=== PATIENT | male | born 1965 | race Hispanic/Latino ===

== ENCOUNTER 2021-05-09 20:24 | Emergency (ER) | payer BC ==
[~2021-05-09] VITALS: Ht 165.1 cm; Wt 108.7 kg
[2021-05-09 20:25] VITALS: BP 134/75
[2021-05-09 22:10] LABS: HEMATOCRIT 45.2 % (42.0-52.0); LYMPH # 0.6 10^3/uL (1.5-5.0); LYMPH % 10.5 % (24.0-44.0); MEAN CORPUSCULAR HEMOGLOBIN 31.4 pg (27.0-33.0); MEAN CORPUSCULAR HGB CONC 35.4 g/dl (32.0-36.5); MEAN CORPUSCULAR VOLUME 88.8 fl (80.0-96.0); MONO # 0.2 10^3/uL (0.0-0.8); NEUTROPHILS # 4.9 10^3/uL (1.5-8.5); NEUTROPHILS % 86.2 % (36.0-66.0); PLATELET COUNT, AUTOMATED 133 10^3/uL (150-450); RED BLOOD COUNT 5.09 10^6/uL (4.30-6.10); WHITE BLOOD COUNT 5.7 10^3/uL (4.0-10.0)
[2021-05-09 22:15] LABS: INR 0.95; PROTHROMBIN TIME 13.1 SECONDS (12.7-14.5)
[2021-05-09 22:16] LABS: PARTIAL THROMBOPLASTIN TIME 40.1 SECONDS (25.9-37.0)
[2021-05-09 22:18] LABS: D-DIMER QUANT 1156.2 ng/ml (<500)
[2021-05-09 22:29] LABS: ALBUMIN 3.2 GM/DL (3.2-5.2); ALT/SGPT 36 U/L (12-78); BILIRUBIN,TOTAL 0.6 MG/DL (0.2-1.0); BLOOD UREA NITROGEN 10 MG/DL (7-18); CALCIUM LEVEL 7.9 MG/DL (8.5-10.1); CARBON DIOXIDE LEVEL 24 MEQ/L (21-32); CHLORIDE LEVEL 102 MEQ/L (98-107); CK-MB VALUE MASS < 1.0 NG/ML (<3.6); CPK CREATINE PHOSPHOKINASE 345 U/L (39-308); CREATININE FOR GFR 0.86 MG/DL (0.70-1.30); FERRITIN 1726 NG/ML (26-388); GLOMERULAR FILTRATION RATE > 60.0 (>56); GLUCOSE, FASTING 129 MG/DL (70-100); LDH LACTATE DEHYDROGENASE 452 U/L (87-241); MB/CK RELATIVE INDEX 0.29 (< OR =4); POTASSIUM SERUM 3.9 MEQ/L (3.5-5.1); SODIUM LEVEL 135 MEQ/L (136-145); TOTAL PROTEIN 6.8 GM/DL (6.4-8.2); TROPONIN I < 0.02 NG/ML (< 0.10)
--- NOTE | 2021-05-09 22:55 | REPVR ---
PROCEDURE INFORMATION: Exam: XR Chest Exam date and time: 05/09/2021 10:00 PM Age: 56 years old Clinical indication: Other: Moody virus workup; Additional info: Coronavirus workup TECHNIQUE: Imaging protocol: XR of the chest. Views: 1 view. COMPARISON: No relevant prior studies available. FINDINGS: Limitations: Limited by patient's body habitus. Lungs: Congested pulmonary vasculature. Patchy mild lung opacities. Pleural spaces: Unremarkable. No pleural effusion. No pneumothorax. Heart/Mediastinum: Unremarkable. No cardiomegaly. Bones/joints: Unremarkable. IMPRESSION: 1. Congested pulmonary vasculature. 2. Patchy mild lung opacities. Electronically signed by: Ho Jiang On 05/09/2021 22:54:51 PM
[2021-05-10] MEDS ORDERED: ONDANSETRON 4MG/2ML VIAL IV ONE (00:10)
[2021-05-10] MEDS ORDERED: MORPHINE 4 MG/ML 1ML VIAL/SYRINGE (J2270) IV PRN (00:10)
[2021-05-10] MEDS ORDERED: ISOVUE-370 76% 100ML VIAL As Ordered ONE (00:24)
--- NOTE | 2021-05-10 01:20 | REPVR ---
PROCEDURE INFORMATION: Exam: CTA Chest With Contrast Exam date and time: 05/10/2021 12:48 AM Age: 56 years old Clinical indication: Pain and abnormal findings; Abnormal diagnostic tests; Elevated d-dimer; Shortness of breath; Angina pectoris; Additional info: Chest pain, SOB, ddimer, covid TECHNIQUE: Imaging protocol: Computed tomographic angiography of the chest with contrast. 3D rendering (Not supervised by radiologist): MIP and/or 3D reconstructed images were created by the technologist. Radiation optimization: All CT scans at this facility use at least one of these dose optimization techniques: automated exposure control; mA and/or kV adjustment per patient size (includes targeted exams where dose is matched to clinical indication); or iterative reconstruction. Contrast material: ISOVUE 370; Contrast volume: 100 ml; Contrast route: INTRAVENOUS (IV); COMPARISON: CR PORTABLE CHEST X-RAY 2021-05-09 21:42 FINDINGS: Limitations: Limited by patient's body habitus. Motion artifact does moderately limit the sensitivity of this examination. Pulmonary arteries: No filling defects in the pulmonary arteries to suggest pulmonary emboli. Aorta: Unremarkable. No aortic aneurysm. No aortic dissection. Lungs: Patchy diffuse ground-glass and consolidative lung opacities. Hypoexpanded lungs with associated atelectasis. Pleural spaces: Unremarkable. No pneumothorax. No pleural effusion. Heart: Unremarkable. No cardiomegaly. No pericardial effusion. Lymph nodes: Unremarkable. No enlarged lymph nodes. Bones/joints: Unremarkable. No acute fracture. Soft tissues: Unremarkable. IMPRESSION: 1. Patchy diffuse ground-glass and consolidative lung opacities. 2. No filling defects in the pulmonary arteries to suggest pulmonary emboli. Electronically signed by: Ho Jiang On 05/10/2021 01:20:09 AM
--- NOTE | 2021-05-10 09:35 | ECGEPIP ---
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
== END 2021-05-10 03:26 | disposition home or self-care (01) ==
LOC: M ED 20:24
DX: J12.82 Pneumonia due to coronavirus disease 2019 (principal); Z88.0 Allergy status to penicillin
CPT/HCPCS: 36600; 71045; 71275; 80053; 82550; 82553; 82728; 82803; 83605; 83615; 84145; 84484; 85025; 85379; 85384; 85610; 85730; 86140; 87040; 93005; 93041; 96374; 96375; 99284; J2270; J2405; Q9967

== ENCOUNTER 2021-05-10 02:23 | Outpatient (CLI) | payer BC ==
[2021-05-10] VITALS (8 sets, daily range): BP systolic 110–124; BP diastolic 60–72
[~2021-05-10] VITALS: Ht 165.1 cm; Wt 105.8 kg
[2021-05-10] MEDS ORDERED: methylPREDNISolone 125MG 2ML VIAL IV PRN (02:30)
[2021-05-10] MEDS ORDERED: diphenhydrAMINE 50MG/ML VIAL (J1200) IV PRN (02:30)
[2021-05-10] MEDS ORDERED: NS 1,000 ML IV SCH (02:30)
[2021-05-10] MEDS ORDERED: ALBUTEROL 90 MCG/ACT 8GM HFA INHALER INH PRN (02:30)
[2021-05-10] MEDS ORDERED: ALBUTEROL SULFATE 2.5 MG/0.5 ML INH NEB SOLN INH PRN (02:30)
[2021-05-10] MEDS ORDERED: EPINEPHrine INJ 1 MG/ML 1ML AMP IM PRN (02:30)
--- NOTE | 2021-05-10 02:36 | IPNPDOC ---
Text Note Date of Service The patient was seen on 05/10/21. NOTE Outpatient transfusion for COVID+ patient encounter 56M who denies any past medical history who is obese is seen for evaluation for monoclonal AB infusion therapy. Patient is COVID19+ will be receiving Monocolonal antibodies infusion therapy per hospital infusion policy. Patient has been feeling tired at home with a headache some cough and muscle aches for the past few days which prompted him to come to the ER for visit. [place]. Patient does not meet criteria to be admitted to the hospital. Patient is breathing at 98% on room air and does not dipped below 92% on ambulation. Patient will receive the infusion and then be discharged to home with OP followup. On exam patient was resting comfortably lungs were clear to auscultation bilaterally with no crackles or wheezing. Regular heart rate. Patient was calm awake and answering all questions appropriately. Is able to speak in full sentences without appearing short of breath. Abdomen was soft and nontender with positive bowel sounds. Consent was obtained with patient and signed in the chart. 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 Patient advised to return to hospital should his symptoms worsen. ELSA RUFFIN MD May 10, 2021 02:36
[2021-05-10] MEDS ORDERED: diphenhydrAMINE 25MG CAP PO ONE (03:44)
[2021-05-10] MEDS ORDERED: ACETAMINOPHEN TAB 650MG DOSE (2X325MG) PO ONE (03:44)
[2021-05-10] MEDS ORDERED: CASIRIVIMAB/IMDEVIMAB 1,200 MG in NS 250 ML IV ONE (04:15)
== END 2021-05-10 06:32 | disposition home or self-care (01) ==
LOC: M OPCLIICU 02:23 → M ICU 03:33 → M OPCLIICU 06:32
PROVIDERS: ATTEND Emergency Medicine
DX: U07.1 COVID-19 (principal); Z88.0 Allergy status to penicillin

== ENCOUNTER 2021-05-10 08:55 | Inpatient (IN) | payer BC ==
[~2021-05-10] VITALS: Ht 165.1 cm; Wt 102.9 kg
[2021-05-10] MEDS: guaiFENesin ER 600 MG TAB PO SCH ×2 (09:00→19:31)
[2021-05-10] MEDS ORDERED: NS 1,000 ML IV SCH (09:20)
[2021-05-10] MEDS ORDERED: ACETAMINOPHEN 500 MG TAB PO ONE (09:20)
[2021-05-10 09:42] LABS: HEMATOCRIT 47.6 % (42.0-52.0); HEMOGLOBIN 16.3 g/dl (13.5-17.5); MEAN CORPUSCULAR HEMOGLOBIN 30.6 pg (27.0-33.0); MEAN CORPUSCULAR HGB CONC 34.2 g/dl (32.0-36.5); MEAN CORPUSCULAR VOLUME 89.3 fl (80.0-96.0); PLATELET COUNT, AUTOMATED 149 10^3/uL (150-450); RED BLOOD COUNT 5.33 10^6/uL (4.30-6.10); WHITE BLOOD COUNT 6.2 10^3/uL (4.0-10.0)
[2021-05-10 09:51] LABS: INR 0.95; PROTHROMBIN TIME 13.1 SECONDS (12.7-14.5)
[2021-05-10 09:52] LABS: PARTIAL THROMBOPLASTIN TIME 36.5 SECONDS (25.9-37.0)
[2021-05-10 09:54] LABS: D-DIMER QUANT 2107.14 ng/ml (<500)
--- NOTE | 2021-05-10 09:58 | REP ---
INDICATION: Coronavirus workup. COMPARISON: Portable chest, 05/09/2021. TECHNIQUE: AP semi upright portable chest imaging was performed. FINDINGS: There is been interval development of more confluent airspace consolidation in both lungs in a distribution consistent with COVID related pneumonia. The heart borders and mediastinum are unremarkable. The upper abdominal bowel gas pattern is normal. There are no bony abnormalities of the chest. IMPRESSION: Findings consistent with worsening airspace disease consistent with COVID related pneumonia. <Electronically signed by Carlos Eduardo Guzman > 05/10/21 0951
[2021-05-10 10:02] LABS: ATYPICAL LYMPH 3 % (0-5); LYMPHOCYTES 3 % (16-44); NEUTROPHILS 77 % (28-66)
[2021-05-10 10:05] LABS: PLATELET ESTIMATE NORMAL (NORMAL)
[2021-05-10] MEDS ORDERED: MORPHINE 4 MG/ML 1ML VIAL/SYRINGE (J2270) IV PRN (10:05)
[2021-05-10] MEDS ORDERED: ONDANSETRON 4MG/2ML VIAL IV ONE (10:05)
[2021-05-10 10:06] LABS: ANISOCYTOSIS 1+; PLATELET CLUMPS SMALL AMT
[2021-05-10 10:21] LABS: ALT/SGPT 35 U/L (12-78); BILIRUBIN,TOTAL 0.7 MG/DL (0.2-1.0); BLOOD UREA NITROGEN 13 MG/DL (7-18); CALCIUM LEVEL 7.9 MG/DL (8.5-10.1); CARBON DIOXIDE LEVEL 27 MEQ/L (21-32); CHLORIDE LEVEL 103 MEQ/L (98-107); CK-MB VALUE MASS < 1.0 NG/ML (<3.6); CPK CREATINE PHOSPHOKINASE 339 U/L (39-308); CREATININE FOR GFR 1.01 MG/DL (0.70-1.30); FERRITIN 2323 NG/ML (26-388); GLOMERULAR FILTRATION RATE > 60.0 (>56); GLUCOSE, FASTING 119 MG/DL (70-100); LDH LACTATE DEHYDROGENASE 545 U/L (87-241); MAGNESIUM LEVEL 2.3 MG/DL (1.8-2.4); MB/CK RELATIVE INDEX 0.29 (< OR =4); POTASSIUM SERUM 3.9 MEQ/L (3.5-5.1); SODIUM LEVEL 138 MEQ/L (136-145); TOTAL PROTEIN 6.8 GM/DL (6.4-8.2); TROPONIN I < 0.02 NG/ML (< 0.10)
[2021-05-10] MEDS ORDERED: HOME MED LIST COMPLETE! XX SCH (10:35)
[2021-05-10] MEDS ORDERED: ACETAMINOPHEN TAB 650MG DOSE (2X325MG) PO PRN (11:25)
[2021-05-10] MEDS ORDERED: ALBUTEROL 90 MCG/ACT 8GM HFA INHALER INH PRN (12:15)
--- NOTE | 2021-05-10 12:22 | HPEPDOC ---
General Date of Admission May 10, 2021 Date of Service: May 10, 2021 Chief Complaint The patient is a 56-year-old male admitted with a reason for visit of Fever/Cough. Source: Patient, Family History of Present Illness Mr. Herring is a 56 year old COVID positive male from [place] who presented with confusion and dyspnea. He was feeling well in [place] and did not get the COVID vaccine by choice. Daughter says that he is more into homeopathic treatments such as acupuncture. His was not feeling well and was having diarrhea. She had tested negative for COVID, so he had planned to visit his . He arrived in [place] on May 03, and that was when he started to have chills. He thought it was just the chill from the airport and did not think much of it. He and his stayed at home since they were not feeling well. He had came to the ED on evening of May 09 where he was doing well at room air and did not meet admission. Instead he was given Casirivimab and Imdevimab early hours of May 10. He went home afterwards, but noted that he was not acting himself. He was coughing and being incoherent. He returned to the ED and was found to be hypoxic in the 70s. and tachycardic. He was put on Vapotherm. Patient reported that he had chills and intermittent abdominal pain and nausea. His appetite has been poor. Patient will be admitted for acute hypoxic respiratory failure and COVID pneumonia. Home Medications No Active Prescriptions or Reported Meds Allergies Coded Allergies: Penicillins (Unverified Allergy, Intermediate, SWOLLEN AND RED, 05/10/21) Past Medical History Medical History Denies any known medical history. Does not take medications at home Surgical History Denies any surgeries in the past Family History Denies any known family history Social History * Smoker: Denies Alcohol: occationally Drugs: denies A-FIB/CHADSVASC A-FIB History Current/History of A-Fib/PAF?: No Review of Systems Constitutional: Reports: Chills, Fever Eyes: Denies: Vision change ENT: Denies: Sore Throat Skin: Denies: Rash Pulmonary: Reports: Dyspnea, Cough (non-productive, but can feel congestion) Cardiovascular: Denies: Chest Pain Gastrointestinal: Reports: Nausea (resolved), Abdominal Pain (Resolved), Diarrhea; Denies: Vomiting Genitourinary: Denies: Dysuria Hematologic: Denies: Bruising Neurological: Denies: Numbness Psych: Denies: Anxiety, Depression Physical Examination General Exam: Positive: Alert, Cooperative Eye Exam: Positive: EOMI; Negative: Sclera icteric ENT Exam: Positive: Atraumatic Chest Exam: Positive: Diminished Heart Exam: Positive: Tachycardic, Regular Rhythm Abdomen Exam: Positive: Normal bowel sounds, Soft; Negative: Tenderness Extremity Exam: Negative: Edema Neuro Exam: Positive: Normal Speech Psych Exam: Positive: Mental status NL, Mood NL Vital Signs Vital Signs Date Time Temp Pulse Resp B/P (MAP) Pulse Ox O2 Delivery O2 Flow Rate FiO2 05/10/21 10:19 25 90 High Flow Cannula 18.0 60 05/10/21 09:45 143/71 (95) 05/10/21 09:40 118 05/10/21 08:56 102.9 Laboratory Data Labs 24H Laboratory Tests 2 05/10/21 09:25: Neutrophils (%) (Auto) , Nucleated Red Blood Cells % (auto) 0.0, Neutrophils 77H, Band Neutrophils 17H, Lymphocytes (Manual) 3L, Atypical Lymphocytes 3, Anisocytosis 1+, Platelet Estimate NORMAL, Clumped Platelets SMALL AMT, Prothrombin Time 13.1, Prothromb Time International Ratio 0.95, Activated Partial Thromboplast Time 36.5, Fibrinogen 643H, D-Dimer, Quantitative 2107.14H, Anion Gap 8, Glomerular Filtration Rate > 60.0, Calcium Level 7.9L, Magnesium Level 2.3, Ferritin 2323H, Total Bilirubin 0.7, Aspartate Amino Transf (AST/SG OT) 44H, Alanine Aminotransferase (ALT/SGPT) 35, Alkaline Phosphatase 36L, Lactate Dehydrogenase 545H, Total Creatine Kinase 339H, Creatine Kinase MB < 1.0, Creatine Kinase MB Relative Index 0.29, Troponin I < 0.02, C-Reactive Protein, Quantitative 13.60H, Total Protein 6.8, Albumin 3.0L, Albumin/Globulin Ratio 0.8, Procalcitonin 0.26 05/10/21 09:26: POC pH (Misc Panel) 7.419, POC Base Excess (Misc Panel) 1.0, POC Saturated Percent O2 (Misc) 94L, POC pO2 (Misc Panel) 69.0L, POC pCO2 (Misc Panel) 40.1, POC HCO3 (Misc Panel) 25.9, POC Glucose (Misc Panel) 127H, POC Sodium (Misc Panel) 137, POC Potassium (Misc Panel) 3.7, POC Chloride (Misc Panel) 98, POC Total CO2 (Misc Panel) 23.0, POC Blood Urea Nitrogen (Misc Panel 12, POC Ionized Calcium (Misc Panel) 4.0L, POC Creatinine (Misc Panel) 0.9, POC Hematocrit (Misc Panel) 48.0, Lactic Acid Level 2.5*H 05/10/21 09:30: POC Lactate (Misc Panel) 2.41*H CBC/BMP Laboratory Tests 05/10/21 09:25 Microbiology Microbiology 05/10/21 Blood Culture, Received Pending 05/10/21 Blood Culture, Received Pending Assessment/Plan Mr. Herring is a 56 year old COVID positive male from [place] who presented with confusion and dyspnea secondary to acute hypoxic respiratory failure from COVID pneumonia. Patient did not receive COVID vaccine by choice. He is still within the window for remdesivir, so he will be put on the remdesivir protocol. He will be on dexamethasone, aspirin, and subq Lovenox. Plan / VTE VTE Prophylaxis Ordered?: Yes Plan Plan 1. Acute hypoxic respiratory failure -Patient saturated in the 70s at room air -Required Vapotherm 2. COVID pneumonia -Start remdesivir protocol -Start dexamethasone -D-dimer is less than 5000, on aspirin and Lovenox subQ -Continue oxygen as needed, goal SpO2 >90 -Albuterol HFA for dyspnea. Mucinex for chest congestion -Procalcitonin 0.26. Ceftriaxone and azithromycin day 1 3. DVT ppx -On Lovenox Disposition: pending clinical improvement JOEL DANIELLE DO May 10, 2021 12:22
[2021-05-10 12:40] LABS: NT-PRO BNP 108 PG/ML (<125)
--- NOTE | 2021-05-10 14:30 | ECGEPIP ---
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
[2021-05-10] MEDS: dexameTHASONE 4 MG/ML 1ML VIAL (J1100 PER 1MG) IV SCH (14:58)
[2021-05-10] MEDS ORDERED: AZITHROMYCIN INJ 500 MG, VIAL MATE ADAPTER 1 EACH in NS 250 ML IV SCH (15:00)
[2021-05-10] MEDS: LevoFLOXacin IV 750 MG in IV 1 EA IV SCH (15:46)
[2021-05-10] MEDS ORDERED: cefTRIAXone SOD 1 GM in D5W MINI-BAG PLUS 50 ML IV SCH (16:00)
[2021-05-10] MEDS: ASPIRIN 81MG ENTERIC TABLET PO SCH (16:17)
[2021-05-10 16:30] VITALS: BP 141/70
[2021-05-10] MEDS: REMDESIVIR 200 MG in NS 250 ML IV ONE ×2 (16:43→16:49)
[2021-05-10 17:00] VITALS: O2SAT 94
[2021-05-10 18:55] VITALS: BP 133/63
[2021-05-10] MEDS ORDERED: SODIUM CHLORIDE 0.9% INJ 10 ML SYR IV ONE (19:00)
[2021-05-10] MEDS: ENOXAPARIN 40MG/0.4ML SYRINGE (J1650 PER 10MG) SC SCH (19:31)
[2021-05-10] MEDS: PANTOPRAZOLE 40MG TAB (PROTONIX) PO SCH (19:31)
[2021-05-10 19:38] VITALS: BP 150/79
[2021-05-10 20:00] VITALS: O2SAT 91
[2021-05-10 20:20] LABS: APPEARANCE, URINE MANUAL HAZY (CLEAR); BILIRUBIN, URINE MANUAL NEGATIVE (NEGATIVE); COLOR, URINE MANUAL YELLOW (YELLOW); GLUCOSE, URINE (UA) MANUAL NEGATIVE (NEGATIVE); KETONE, URINE MANUAL 2+ mg/dL (NEGATIVE); NITRITE, URINE MANUAL NEGATIVE (NEGATIVE); PROTEIN, URINE MANUAL 1+ mg/dL (NEGATIVE); UROBILINOGEN, URINE MANUAL NORMAL (NORMAL)
[2021-05-10 20:21] LABS: BLOOD URINE MANUAL POSITIVE (NEGATIVE); LEUKOCYTE ESTERASE, URINE MAN NEGATIVE (NEGATIVE); MUCUS, URINE LARGE AMOUNT (NEGATIVE)
[2021-05-10 20:27] LABS: AMORPHOUS SEDIMENT, URINE LARGE AMOUNT (NEGATIVE); BACTERIA, URINE NONE SEEN; RBC, URINE 0-1 /hpf (0-3); SQUAMOUS EPITHELIAL CELL URINE SMALL AMOUNT /hpf (SMALL AMT); TRANSITIONAL EPI CELLS, URINE SMALL AMOUNT /hpf; WHITE BLOOD CELL CAST, URINE 0-1 /lpf
[2021-05-10 23:18] VITALS: BP 169/77
[2021-05-10] MEDS: RAMELTEON 8 MG TAB (ROZEREM) PO PRN (23:58)
[2021-05-11] VITALS (7 sets, daily range): BP systolic 122–160; BP diastolic 62–79; O2SAT 91–94
[2021-05-11 05:01] LABS: HEMATOCRIT 50.2 % (42.0-52.0); HEMOGLOBIN 17.3 g/dl (13.5-17.5); MEAN CORPUSCULAR HEMOGLOBIN 31.3 pg (27.0-33.0); MEAN CORPUSCULAR HGB CONC 34.5 g/dl (32.0-36.5); MEAN CORPUSCULAR VOLUME 90.9 fl (80.0-96.0); PLATELET COUNT, AUTOMATED 192 10^3/uL (150-450); RED BLOOD COUNT 5.52 10^6/uL (4.30-6.10); WHITE BLOOD COUNT 17.6 10^3/uL (4.0-10.0)
[2021-05-11 05:16] LABS: ALBUMIN 2.7 GM/DL (3.2-5.2); ALT/SGPT 33 U/L (12-78); BILIRUBIN,DIRECT 0.3 MG/DL (0.0-0.2); BILIRUBIN,TOTAL 0.6 MG/DL (0.2-1.0); BLOOD UREA NITROGEN 15 MG/DL (7-18); CALCIUM LEVEL 8.1 MG/DL (8.5-10.1); CARBON DIOXIDE LEVEL 28 MEQ/L (21-32); CHLORIDE LEVEL 106 MEQ/L (98-107); CREATININE FOR GFR 0.87 MG/DL (0.70-1.30); GLOMERULAR FILTRATION RATE > 60.0 (>56); GLUCOSE, FASTING 140 MG/DL (70-100); MAGNESIUM LEVEL 2.7 MG/DL (1.8-2.4); POTASSIUM SERUM 4.3 MEQ/L (3.5-5.1); SODIUM LEVEL 139 MEQ/L (136-145); TOTAL PROTEIN 7.4 GM/DL (6.4-8.2)
[2021-05-11 05:27] LABS: LYMPHOCYTES 2 % (16-44); MONOCYTES 3 % (0-5); NEUTROPHILS 93 % (28-66)
[2021-05-11 05:29] LABS: PLATELET ESTIMATE NORMAL (NORMAL)
[2021-05-11] MEDS: dexameTHASONE 4 MG/ML 1ML VIAL (J1100 PER 1MG) IV SCH (09:19)
[2021-05-11] MEDS: ASPIRIN 81MG ENTERIC TABLET PO SCH (09:20)
[2021-05-11] MEDS: ENOXAPARIN 40MG/0.4ML SYRINGE (J1650 PER 10MG) SC SCH ×2 (09:20→20:08)
[2021-05-11] MEDS: guaiFENesin ER 600 MG TAB PO SCH ×2 (09:20→20:08)
--- NOTE | 2021-05-11 12:48 | IPNPDOC ---
Subjective Date Seen The patient was seen on 05/11/21. Subjective Chief Complaint/HPI Mr. Herring is a 56 year old COVID positive male from [place] who presented with confusion and dyspnea. Overnight, he tolerated the CPAP well. This morning, he was seen with the [employer] security messenger. Patient was taken off CPAP and put on high flow nasal canula. He denies any chest pain, dyspnea, or abdominal pain. Denies any nausea either. After speaking with the security messenger, he wanted to sit up in the chair. He sat in the chair with the Vapotherm, saturating between 88 to 92%. Objective Physical Examination General Exam: Positive: Alert, Cooperative Eye Exam: Positive: EOMI; Negative: Sclera icteric ENT Exam: Positive: Atraumatic Chest Exam: Positive: Diminished Heart Exam: Positive: Tachycardic, Regular Rhythm Abdomen Exam: Positive: Normal bowel sounds, Soft; Negative: Tenderness Extremity Exam: Negative: Edema Neuro Exam: Positive: Normal Speech Psych Exam: Positive: Mental status NL, Mood NL Assessment /Plan Assessment Mr. Herring is a 56 year old COVID positive male from [place] who presented with confusion and dyspnea secondary to acute hypoxic respiratory failure from COVID pneumonia. Patient did not receive COVID vaccine by choice. He is still within the window for remdesivir, so he will be put on the remdesivir protocol. He will be on dexamethasone, aspirin, and subq Lovenox. Plan/VTE VTE Prophylaxis Ordered?: Yes Plan 1. Acute hypoxic respiratory failure -Patient saturated in the 70s at room air -Patient requires CPAP, but is able to tolerate Vapotherm for a short period. 2. COVID pneumonia -Continue remdesivir protocol -Continue dexamethasone -D-dimer is less than 5000, on aspirin and Lovenox subQ -Continue oxygen as needed -Albuterol HFA for dyspnea. Mucinex for chest congestion -Procalcitonin 0.26. Ceftriaxone and azithromycin day 2 3. DVT ppx -On Lovenox Disposition: Pending improvement in oxygen requirements VS, I&O, 24H, [facility] Vital Signs/I&O Vital Signs Date Time Temp Pulse Resp B/P (MAP) Pulse Ox O2 Delivery O2 Flow Rate FiO2 05/11/21 12:00 40.0 100 05/11/21 11:30 100 32 91 HVNI-Vapotherm 05/11/21 11:26 97.4 122/62 (82) I&O- Last 24 Hours up to 6 AM 05/11/21 06:00 Intake Total 1350 ml Output Total 570 ml Balance 780 ml Laboratory Data 24H LABS Laboratory Tests 2 05/10/21 14:05: Lactic Acid Followup at 4 Hours 2.7*H 05/10/21 19:57: Bedside Urine Color (LAB) YELLOW, Bedside Urine Appearance (LAB) HAZYH, Bedside Urine pH (LAB) 5.0, Bedside Urine Specific [place] (LAB 1.020, Bedside Urine Protein (LAB) 1+H, Bedside Urine Glucose (UA) NEGATIVE, Bedside Urine Ketones (LAB) 2+H, Bedside Urine Blood POSITIVEH, Bedside Urine Nitrite (LAB) NEGATIVE, Bedside Urine Bilirubin (LAB) NEGATIVE, Bedside Urine Urobilinogen (LAB) NORMAL, Bedside Urine Leukocyte Esterase (L NEGATIVE, Urine Sediment Examination PERFORMED, Urine RBC 0-1, Urine WBC 1-3, Urine Squamous Epithelial Cells SMALL AMOUNT, Urine Transitional Epithelial Cells SMALL AMOUNTH, Urine Amorphous Sediment LARGE AMOUNTH, Urine Bacteria NONE SEEN, Urine Hyaline Casts 3-5H, Urine Granular Casts 7-10H, Urine White Blood Cell Casts 0-1, Urine Mucus LARGE AMOUNTH 05/11/21 04:36: Neutrophils (%) (Auto) , Nucleated Red Blood Cells % (auto) 0.0, Neutrophils 93H, Band Neutrophils 2, Lymphocytes (Manual) 2L, Monocytes (Manual) 3, Platelet Estimate NORMAL, Anion Gap 5L, Glomerular Filtration Rate > 60.0, Calcium Level 8.1L, Magnesium Level 2.7H, Total Bilirubin 0.6, Direct Bilirubin 0.3H, Aspartate Amino Transf (AST/SGOT) 66H, Alanine Aminotransferase (ALT/SGPT) 33, Alkaline Phosphatase 35L, Total Protein 7.4, Albumin 2.7L, Albumin/Globulin Ratio 0.6 CBC/BMP Laboratory Tests 05/11/21 04:36 Microbiology Microbiology 05/10/21 Blood Culture - Preliminary, Resulted No growth after 24 hours . All specim... 05/10/21 Blood Culture - Preliminary, Resulted No growth after 24 hours . All specim... JOEL DANIELLE DO May 11, 2021 12:48
[2021-05-11] MEDS: LevoFLOXacin IV 750 MG in IV 1 EA IV SCH (14:13)
[2021-05-11] MEDS ORDERED: VANCOMYCIN HCL 1,000 MG, VIAL MATE ADAPTER 1 EACH in NS 250 ML IV ONE ×2 (15:00→16:00)
[2021-05-11] MEDS ORDERED: VANCOMYCIN HCL 2,000 MG in D5W 500 ML IV ONE (16:00)
[2021-05-11] MEDS: REMDESIVIR 100 MG in NS 250 ML IV SCH (16:39)
[2021-05-11] MEDS: SODIUM CHLORIDE 0.9% INJ 10 ML SYR IV SCH (16:40)
[2021-05-11] MEDS: ONDANSETRON 4MG/2ML VIAL IV PRN (17:04)
[2021-05-11] MEDS ORDERED: ALPRAZolam 0.5 MG TAB PO ONE ×2 (17:15→17:20)
[2021-05-11] MEDS: PANTOPRAZOLE 40MG TAB (PROTONIX) PO SCH (20:08)
[2021-05-11] MEDS: RAMELTEON 8 MG TAB (ROZEREM) PO PRN (20:08)
[2021-05-11] MEDS: VANCOMYCIN HCL 1,000 MG, VIAL MATE ADAPTER 1 EACH in NS 250 ML IV SCH (23:34)
[2021-05-12] VITALS (20 sets, daily range): BP systolic 104–162; BP diastolic 53–97
[2021-05-12 04:49] LABS: BASO % 0.1 % (0.0-1.0); HEMATOCRIT 45.4 % (42.0-52.0); LYMPH # 0.7 10^3/uL (1.5-5.0); MEAN CORPUSCULAR HEMOGLOBIN 30.8 pg (27.0-33.0); MEAN CORPUSCULAR HGB CONC 33.7 g/dl (32.0-36.5); MEAN CORPUSCULAR VOLUME 91.3 fl (80.0-96.0); MONO # 0.4 10^3/uL (0.0-0.8); MONO % 2.7 % (2.0-8.0); NEUTROPHILS # 12.4 10^3/uL (1.5-8.5); PLATELET COUNT, AUTOMATED 226 10^3/uL (150-450); RED BLOOD COUNT 4.97 10^6/uL (4.30-6.10); WHITE BLOOD COUNT 13.6 10^3/uL (4.0-10.0)
[2021-05-12 04:55] LABS: HEMOGLOBIN 15.3 g/dl (13.5-17.5)
[2021-05-12 05:00] LABS: INR 1.12; PROTHROMBIN TIME 14.8 SECONDS (12.7-14.5)
[2021-05-12 05:01] LABS: PARTIAL THROMBOPLASTIN TIME 44.3 SECONDS (25.9-37.0)
[2021-05-12 05:41] LABS: ALBUMIN 2.5 GM/DL (3.2-5.2); ALT/SGPT 32 U/L (12-78); BILIRUBIN,DIRECT 0.2 MG/DL (0.0-0.2); BILIRUBIN,TOTAL 0.5 MG/DL (0.2-1.0); BLOOD UREA NITROGEN 21 MG/DL (7-18); CALCIUM LEVEL 8.1 MG/DL (8.5-10.1); CARBON DIOXIDE LEVEL 28 MEQ/L (21-32); CHLORIDE LEVEL 105 MEQ/L (98-107); CREATININE FOR GFR 0.78 MG/DL (0.70-1.30); FERRITIN 3510 NG/ML (26-388); GLOMERULAR FILTRATION RATE > 60.0 (>56); GLUCOSE, FASTING 149 MG/DL (70-100); LDH LACTATE DEHYDROGENASE 814 U/L (87-241); MAGNESIUM LEVEL 2.7 MG/DL (1.8-2.4); NT-PRO BNP 73 PG/ML (<125); POTASSIUM SERUM 4.5 MEQ/L (3.5-5.1); SODIUM LEVEL 141 MEQ/L (136-145)
[2021-05-12] MEDS: ASPIRIN 81MG ENTERIC TABLET PO SCH (08:07)
[2021-05-12] MEDS: VANCOMYCIN HCL 1,000 MG, VIAL MATE ADAPTER 1 EACH in NS 250 ML IV SCH ×3 (08:07→23:44)
[2021-05-12] MEDS: ENOXAPARIN 40MG/0.4ML SYRINGE (J1650 PER 10MG) SC SCH ×2 (08:08→20:38)
[2021-05-12] MEDS: dexameTHASONE 4 MG/ML 1ML VIAL (J1100 PER 1MG) IV SCH (08:08)
[2021-05-12] MEDS: guaiFENesin ER 600 MG TAB PO SCH ×2 (08:08→20:38)
[2021-05-12] MEDS: LORazepam 2 MG/ML VIAL IV PRN (10:29)
[2021-05-12 12:08] LABS: ABG BASE EXCESS 2.1 (-2.0-2.0); ABG HCO3 25.5 MEQ/L (22.0-26.0); ABG O2 SATURATION 91.9 % (95.0-99.0); ABG PARTIAL PRESSURE CO2 36.3 mmHg (35.0-45.0); ABG PARTIAL PRESSURE O2 56.7 mmHg (75.0-100.0); ABG STANDARD HCO3 26.2 MEQ/L (22.0-26.0); ABG TOTAL CO2 26.6 MEQ/L (22.0-29.0); ABG pH (ARTERIAL) 7.465 UNITS (7.350-7.450)
[2021-05-12 14:12] LABS: VANCOMYCIN LEVEL TROUGH 10.2 UG/ML (10.0-20.0)
[2021-05-12] MEDS: LevoFLOXacin IV 750 MG in IV 1 EA IV SCH (14:52)
[2021-05-12] MEDS: BARICITINIB 2MG TABLET (OLUMIANT) FOR EUA PO SCH (15:09)
--- NOTE | 2021-05-12 15:17 | CCN ---
CRITICAL CARE NOTE DATE: 05/12/2021 START TIME: 1330 STOP TIME: 1422. SUBJECTIVE: I was called to the ICU to attend Jerardo Herring. I spoke at length with the nurse at the bedside, Dr. Francisco Montgomery as well as Dr. Sky Meehan. I reviewed the chart. In essence, this is a gentleman who speaks only Polish. He is visiting here from [place], [place]. He was feeling ill on arrival. He was found to be positive for COVID. Since admission he has been on steroids, Lovenox and Remdesivir. His inflammatory parameters have been worsening. He was initially on Vapotherm, now high flow and intermittently on CPAP. Despite this he had worsening oxygenation levels. There was concern over the need for intubation and this will be addressed further below. OBJECTIVE: Currently he is seated in the bedside chair, sitting upright. With high flow aerosol mask in place saturation currently 90-95%. This is 95-100% FiO2. Currently he appears comfortable. Respiratory rate 20-22 without accessory muscle use. Current temperature is 97.6, blood pressure 152 systolic and heart rate 88 with sinus mechanism. Respiratory rate approximately 24-26 at the moment. He is awake, alert, appropriate. He does interact appropriately. HEENT otherwise normocephalic, atraumatic. Pupils reactive. Neck supple, trachea midline. Membranes nose and mouth were moist. Chest shows diminished but symmetric expansion. There are crackles at the bases which improve somewhat with deeper inspiratory effort. Peripheral pulses palpable, no edema. Cardiac exam is generally regular without gallop. Abdomen is soft, nontender, active bowel sounds, no convincing organomegaly or masses. Neurologically he is awake, alert and appropriate. Moves all extremities. Psychiatric he has normal mood and affect. Other laboratories from today show white blood cell count of 13.6 which is down from yesterday. Hemoglobin 15.3, platelet count 226,000, 91% segs, no bands. Sodium 141, potassium 4.5, chloride 105, CO2 28, BUN 21, creatinine 0.78, glucose 149. Lactic acid several days ago 2.7, has not been repeated. D-dimer on the 2106 and it has not been repeated. Fibrinogen which was 643 is mildly elevated from that on presentation, now is 760. He is on Vancomycin as well as Levaquin. Blood gases done earlier today on CPAP shows pH 7.465, pCO2 36.3, pO2 of 56.7, saturation 91.9%. Chest x-ray done on admission clearly shows diffuse infiltrates. CT from the day before clearly consistent with COVID. MOST PRESSING PROBLEMS REQUIRING MY IMMEDIATE PRESENCE AT THE BEDSIDE: 1. Hypoxemia. 2. COVID pneumonia. PLAN: At this point I had a very lengthy discussion with Dr. Montgomery and Dr. Meehan. Historically in these patients if you are able to avoid endotracheal intubation, mechanical ventilation that is preferable as long as their oxygenation status remains reasonable. He has done well when he is in the prone position in bed but does not stay there long. Currently on high flow oxygen he is comfortable and oxygen status is quite good. His work of breathing is reasonable. He had a mild respiratory alkalosis on his blood gas but is actually breathing slower at the moment. I think in view of this we will add Baricitinib. We will continue his Remdesivir and steroids. He is on dose suggested Lovenox. In view of his borderline procalcitonin and his initially elevated white count I have no qualms with the broad spectrum antimicrobials. His ferritin was quite elevated on admission and has not been repeated and we will recheck that as well. We can certainly make adjustments in his CPAP if needed. My hope is that we will be able to avoid endotracheal intubation. Otherwise, he is on maximal therapy. Will proceed as outlined above. I left the bedside at 1422 hours. 52 minutes of critical care time were at the bedside not including procedures.
--- NOTE | 2021-05-12 18:23 | IPNPDOC ---
Subjective Date Seen The patient was seen on 05/12/21. Subjective Chief Complaint/HPI Mr. Herring is a 56 year old COVID positive male from [place] who presented with confusion and dyspnea. This morning, he was not doing well. He was not tolerating Vapotherm and has been requiring requiring CPAP more frequently. With a 100% on CPAP, his ABG pO2 is 56.7 (SpO2 91.9). We were planning to intubate. Family wanted to speak with him prior to intubation, so we sat him up. He saturated on Vapotherm around 95%. Spoke with Dr. Felton. Will hold off on intubation, but will be starting Olumiant as all of his inflammatory markers are slowly increasing. Will try to have patient be upright in chair to help with oxygenation. Objective Physical Examination General Exam: Positive: Alert, Cooperative Eye Exam: Positive: EOMI; Negative: Sclera icteric ENT Exam: Positive: Atraumatic Chest Exam: Positive: Diminished Heart Exam: Positive: Rate Normal, Regular Rhythm Abdomen Exam: Positive: Normal bowel sounds, Soft; Negative: Tenderness Extremity Exam: Negative: Edema Neuro Exam: Positive: Normal Speech Psych Exam: Positive: Mental status NL, Mood NL Assessment /Plan Assessment Mr. Herring is a 56 year old COVID positive male from [place] who presented with confusion and dyspnea secondary to acute hypoxic respiratory failure from COVID pneumonia. Patient did not receive COVID vaccine by choice. He is still within the window for remdesivir, so he will be put on the remdesivir protocol. He will be on dexamethasone, aspirin, and subq Lovenox. Pulmonary/Critical care started patient on baricitinib (Olumiant) Plan/VTE VTE Prophylaxis Ordered?: Yes Plan 1. Acute hypoxic respiratory failure -Patient saturated in the 70s at room air -Patient can switch between 100% vapotherm and 100% CPAP. Does better siting up in chair than laying down on bed 2. COVID pneumonia -Continue remdesivir protocol -Continue dexamethasone -D-dimer is less than 5000, on aspirin and Lovenox subQ -Albuterol HFA for dyspnea. Mucinex for chest congestion -Procalcitonin 0.26. Levofloxacin and Vancomycin day 3 -Pulmonary/Critical care started patient on Baricitinib 3. Blood culture contaminant -Blood culture grew micrococcus which is most likely a contaminant. 4. DVT ppx -On Lovenox Disposition: Pending improvement in oxygen requirements VS, I&O, 24H, [facility] Vital Signs/I&O Vital Signs Date Time Temp Pulse Resp B/P (MAP) Pulse Ox O2 Delivery O2 Flow Rate FiO2 05/12/21 17:00 67 114/59 (77) 96 NIPPV (BIPAP/CPAP) 100 05/12/21 16:00 97.3 39 05/12/21 04:00 40.0 I&O- Last 24 Hours up to 6 AM 05/12/21 06:00 Intake Total 2510 ml Output Total 950 ml Balance 1560 ml Laboratory Data 24H LABS Laboratory Tests 2 05/12/21 04:14: Immature Granulocyte % (Auto) 1.2, Neutrophils (%) (Auto) 91.0H, Lymphocytes (%) (Auto) 5.0L, Monocytes (%) (Auto) 2.7, Eosinophils (%) (Auto) 0.0, Basophils (%) (Auto) 0.1, Neutrophils # (Auto) 12.4H, Lymphocytes # (Auto) 0.7L, Monocytes # (Auto) 0.4, Eosinophils # (Auto) 0.0, Basophils # (Auto) 0.0, Nucleated Red Blood Cells % (auto) 0.0, Prothrombin Time 14.8H, Prothromb Time International Ratio 1.12, Activated Partial Thromboplast Time 44.3H, Fibrinogen 760H, Anion Gap 8, Glomerular Filtration Rate > 60.0, Calcium Level 8.1L, Magnesium Level 2.7H, Ferritin 3510H, Total Bilirubin 0.5, Direct Bilirubin 0.2, Aspartate Amino Transf (AST/SGOT) 56H, Alanine Aminotransferase (ALT/SGPT) 32, Alkaline Phosphatase 38L, Lactate Dehydrogenase 814H, FV-Etq-E-Type Natriuretic Peptide 73, Total Protein 6.0L, Albumin 2.5L, Albumin/Globulin Ratio 0.7 05/12/21 11:52: Blood Gas Bicarbonate Standard 26.2H, Arterial Blood pH 7.465H, Arterial Blood Partial Pressure CO2 36.3, Arterial Blood Partial Pressure O2 56.7L, Arterial Blood Total CO2 26.6, Arterial Blood HCO3 25.5, Arterial Blood Base Excess 2.1H, Arterial Blood Oxygen Saturation 91.9L 05/12/21 13:31: Ferritin 2907H, Vancomycin Level Trough 10.2 05/12/21 14:29: 05/12/21 14:31: CBC/BMP Laboratory Tests 05/12/21 04:14 Microbiology Microbiology 05/10/21 Blood Culture - Preliminary, Resulted No Growth after 48 hours. All Specime... 05/10/21 Blood Culture - Final, Complete Micrococcus Luteus JOEL DANIELLE DO May 12, 2021 18:23
[2021-05-12] MEDS: REMDESIVIR 100 MG in NS 250 ML IV SCH (18:28)
[2021-05-12] MEDS: SODIUM CHLORIDE 0.9% INJ 10 ML SYR IV SCH (18:29)
[2021-05-12] MEDS: RAMELTEON 8 MG TAB (ROZEREM) PO PRN (20:38)
[2021-05-12] MEDS: ONDANSETRON 4MG/2ML VIAL IV PRN (20:38)
[2021-05-12] MEDS: PANTOPRAZOLE 40MG TAB (PROTONIX) PO SCH (20:38)
[2021-05-12] MEDS ORDERED: NS 500 ML IV ONE (23:45)
[2021-05-13] VITALS (25 sets, daily range): BP systolic 98–161; BP diastolic 47–94; O2SAT 92–98
[2021-05-13] MEDS: ONDANSETRON 4MG/2ML VIAL IV PRN ×2 (05:29→08:48)
[2021-05-13] MEDS: LevoFLOXacin 750 MG TABLET PO SCH (06:00)
[2021-05-13] MEDS: VANCOMYCIN HCL 1,000 MG, VIAL MATE ADAPTER 1 EACH in NS 250 ML IV SCH (08:15)
[2021-05-13] MEDS: BARICITINIB 2MG TABLET (OLUMIANT) FOR EUA PO SCH (08:15)
[2021-05-13] MEDS: ASPIRIN 81MG ENTERIC TABLET PO SCH (08:15)
[2021-05-13] MEDS: guaiFENesin ER 600 MG TAB PO SCH ×2 (08:15→19:55)
[2021-05-13] MEDS: ENOXAPARIN 40MG/0.4ML SYRINGE (J1650 PER 10MG) SC SCH ×2 (08:16→21:45)
[2021-05-13] MEDS: dexameTHASONE 4 MG/ML 1ML VIAL (J1100 PER 1MG) IV SCH (08:18)
[2021-05-13] MEDS: LORazepam 2 MG/ML VIAL IV PRN (08:48)
[2021-05-13 09:04] LABS: BASO # 0.1 10^3/uL (0.0-0.2); BASO % 0.5 % (0.0-1.0); HEMOGLOBIN 15.2 g/dl (13.5-17.5); LYMPH % 8.7 % (24.0-44.0); MEAN CORPUSCULAR HGB CONC 33.8 g/dl (32.0-36.5); MEAN CORPUSCULAR VOLUME 91.8 fl (80.0-96.0); MONO # 0.6 10^3/uL (0.0-0.8); MONO % 5.3 % (2.0-8.0); NEUTROPHILS # 9.8 10^3/uL (1.5-8.5); NEUTROPHILS % 83.8 % (36.0-66.0); PLATELET COUNT, AUTOMATED 258 10^3/uL (150-450); WHITE BLOOD COUNT 11.7 10^3/uL (4.0-10.0)
[2021-05-13 09:26] LABS: BLOOD UREA NITROGEN 26 MG/DL (7-18); C REACTIVE PROTEIN QUANTITATIV 6.62 MG/DL (0.00-0.30); CALCIUM LEVEL 8.1 MG/DL (8.5-10.1); CARBON DIOXIDE LEVEL 30 MEQ/L (21-32); CHLORIDE LEVEL 103 MEQ/L (98-107); CREATININE FOR GFR 0.89 MG/DL (0.70-1.30); GLOMERULAR FILTRATION RATE > 60.0 (>56); GLUCOSE, FASTING 138 MG/DL (70-100); MAGNESIUM LEVEL 2.8 MG/DL (1.8-2.4); POTASSIUM SERUM 4.4 MEQ/L (3.5-5.1); SODIUM LEVEL 139 MEQ/L (136-145)
--- NOTE | 2021-05-13 10:19 | CCN ---
CRITICAL CARE NOTE DATE: 05/13/2021 SUBJECTIVE: I again attended Jerardo Herring here in the Intensive Care Unit. Patient has been examined and chart reviewed. He has done much better on CPAP of 14 and we have been able to wean his FIO2 down to 75% when on it. Intermittently, he is off to Vapotherm. He does well when sitting up in the chair. He is more tachypneic when he is laying in bed. T-max overnight 97.5, blood pressure 98 to the 140s systolic, heart rate generally in the 60s and 70s with a sinus mechanism. Respiratory rate anywhere from 28 to 35. Ins and outs midnight to midnight: 2204 ml in with 1125 ml out. Laboratories this morning shows a white blood cell count of 11.7, hemoglobin 15.2, platelet count 258,000, 83% segs, no bands. Sodium 139, K 4.4, chloride 103, CO2 30, BUN 26, creatinine 0.89. Lactic acid this morning has cleared at 1.9. CRP remains elevated at 6.62. Repeat D-Dimer done yesterday did show a decline to 955 down from a high of 2104. Ferritin yesterday was down slightly to 2900 down from about 3500. OBJECTIVE: GENERAL: He is in bed in the left lateral decubitus position. He is mildly tachypneic but no accessory muscle use. CPAP mask in place. HEENT: Pupils reactive, sclera clear. Trachea is in the midline. CHEST: Diminished but symmetric expansion. There are dependent crackles. No convincing rhonchus, wheeze or rubs. CARDIAC: Distant but regular, peripheral pulses. No edema. ABDOMEN: Soft, nontender with active bowel sounds. No organomegaly or masses. EXTREMITIES: Without cyanosis or clubbing. NEUROLOGIC: He is quite comfortable, moves all extremities. IMPRESSION: 1. COVID pneumonia with profound hypoxemia. 2. COVID-19 infection. RECOMMENDATIONS: At this point he has done much better with the use of CPAP at higher pressures. He remains on Decadron, Enoxaparin, Remdesivir and Baricitinib. Due this presentation as well as his elevated lactate and CRP, he is on Levaquin and Vancomycin and I believe this is quite reasonable. We will continue his current level of care. I believe getting him out of bed as well as proning has paid benefits and we will continue as tolerated. He remains at high risk for decline but I am mildly encouraged by the improvement in some of his inflammatory markers. We will proceed as outlined above. Further recommendations will be made in the progress record as new information becomes available.
--- NOTE | 2021-05-13 12:40 | IPNPDOC ---
Text Note Date of Service The patient was seen on 05/13/21. NOTE Subjective: Patient is a 56-year-old male who is Covid positive who presented initially with confusion and dyspnea. Patient was not doing well yesterday morning and the plan was to intubate the patient however, when they set the patient up, his oxygen saturation did rebound. Intubation was held off and the patient has improved. Patient still is on CPAP however, patient is feeling better at this time. Patient's inflammatory markers have improved Physical exam: Vitals: See below General: Alert and oriented male patient who was sitting up in bed with CPAP on when I walked in. Patient not appear to be in any acute distress. HEENT: Normocephalic, atraumatic, moist mucous membranes. Neck: No lymphadenopathy or thyromegaly Cardiac: Regular rate and rhythm, no murmurs, normal S1, normal S2 Pulm: Clear to auscultation bilaterally. No wheezes, rhonchi, rales Abd: Nondistended, nontender to palpation, normal bowel sounds Ext: No edema bilateral lower extremities Labs: See below Imaging: No new imaging has been performed. Assessment/plan: 56-year-old Cherri positive male from [place] who presented with confusion and dyspnea secondary to acute hypoxic respiratory failure from Covid pneumonia. 1. Acute hypoxic respiratory failure patient was saturating in the 70s on room air. Patient does better sitting up on CPAP and/or Vapotherm and laying down in bed. I encouraged the patient to continue sitting up as much as possible in order to help with his oxygenation. 2. Covid pneumonia. Continue remdesivir and dexamethasone. Patient's D-dimer is less than 5000. Patient takes aspirin is on Lovenox subcutaneous. Vancomycin was discontinued as the patient's MRSA screen was negative and the patient's blood cultures that grew gram-positive cocci were a contaminant. Patient will continue with levofloxacin. 3. Blood culture contaminant. Patient's blood culture grew micrococcus which is a contaminant. DVT Prophylaxis: Lovenox Disposition: Pending improvement of the patient's oxygenation. VS,Fishbone, I+O VS, Fishbone, I+O Laboratory Tests 05/13/21 08:32 Vital Signs Date Time Temp Pulse Resp B/P (MAP) Pulse Ox O2 Delivery O2 Flow Rate FiO2 05/13/21 12:00 70 05/13/21 12:00 97.0 61 28 110/53 (72) 98 NIPPV (BIPAP/CPAP) 05/12/21 04:00 40.0 I&O- Last 24 Hours up to 6 AM 05/13/21 06:00 Intake Total 2204 ml Output Total 1250 ml Balance 954 ml PATRICIO COBB DO May 13, 2021 12:40
[2021-05-13 16:09] LABS: MYCOPLASMA PNEUMONIAE IgG 624 U/mL (0-99); MYCOPLASMA PNEUMONIAE IgM <770 U/mL (0-769)
[2021-05-13] MEDS: REMDESIVIR 100 MG in NS 250 ML IV SCH (16:13)
[2021-05-13] MEDS: SODIUM CHLORIDE 0.9% INJ 10 ML SYR IV SCH (17:11)
[2021-05-13] MEDS: PANTOPRAZOLE 40MG TAB (PROTONIX) PO SCH (19:55)
[2021-05-13] MEDS: RAMELTEON 8 MG TAB (ROZEREM) PO PRN (19:56)
[2021-05-14] VITALS (25 sets, daily range): BP systolic 90–128; BP diastolic 53–70; O2SAT 89–99
[2021-05-14] MEDS: LevoFLOXacin 750 MG TABLET PO SCH (05:21)
[2021-05-14 05:33] LABS: HEMATOCRIT 46.4 % (42.0-52.0); HEMOGLOBIN 15.7 g/dl (13.5-17.5); MEAN CORPUSCULAR HEMOGLOBIN 31.2 pg (27.0-33.0); MEAN CORPUSCULAR HGB CONC 33.8 g/dl (32.0-36.5); MEAN CORPUSCULAR VOLUME 92.1 fl (80.0-96.0); PLATELET COUNT, AUTOMATED 276 10^3/uL (150-450); RED BLOOD COUNT 5.04 10^6/uL (4.30-6.10)
[2021-05-14 05:49] LABS: INR 1.02; PROTHROMBIN TIME 13.8 SECONDS (12.7-14.5)
[2021-05-14 05:50] LABS: PARTIAL THROMBOPLASTIN TIME 25.8 SECONDS (25.9-37.0)
[2021-05-14 05:54] LABS: ATYPICAL LYMPH 3 % (0-5); LYMPHOCYTES 11 % (16-44); MONOCYTES 6 % (0-5); NEUTROPHILS 80 % (28-66)
[2021-05-14 05:55] LABS: PLATELET ESTIMATE NORMAL (NORMAL)
[2021-05-14 06:08] LABS: ALBUMIN 2.4 GM/DL (3.2-5.2); ALT/SGPT 51 U/L (12-78); BILIRUBIN,DIRECT 0.1 MG/DL (0.0-0.2); BILIRUBIN,TOTAL 0.8 MG/DL (0.2-1.0); BLOOD UREA NITROGEN 25 MG/DL (7-18); CALCIUM LEVEL 7.9 MG/DL (8.5-10.1); CARBON DIOXIDE LEVEL 31 MEQ/L (21-32); CHLORIDE LEVEL 105 MEQ/L (98-107); CREATININE FOR GFR 0.95 MG/DL (0.70-1.30); FERRITIN 1437 NG/ML (26-388); GLOMERULAR FILTRATION RATE > 60.0 (>56); GLUCOSE, FASTING 130 MG/DL (70-100); LDH LACTATE DEHYDROGENASE 861 U/L (87-241); MAGNESIUM LEVEL 2.7 MG/DL (1.8-2.4); NT-PRO BNP 793 PG/ML (<125); SODIUM LEVEL 141 MEQ/L (136-145); TOTAL PROTEIN 6.4 GM/DL (6.4-8.2)
[2021-05-14] MEDS: ONDANSETRON 4MG/2ML VIAL IV PRN (08:26)
[2021-05-14] MEDS: dexameTHASONE 4 MG/ML 1ML VIAL (J1100 PER 1MG) IV SCH (08:29)
[2021-05-14] MEDS: guaiFENesin ER 600 MG TAB PO SCH ×2 (08:31→20:25)
[2021-05-14] MEDS: BARICITINIB 2MG TABLET (OLUMIANT) FOR EUA PO SCH (08:31)
[2021-05-14] MEDS: ASPIRIN 81MG ENTERIC TABLET PO SCH (08:31)
[2021-05-14] MEDS: ENOXAPARIN 40MG/0.4ML SYRINGE (J1650 PER 10MG) SC SCH ×2 (08:32→20:25)
--- NOTE | 2021-05-14 09:45 | CCN ---
CRITICAL CARE NOTE DATE: 05/14/2021 SUBJECTIVE: I again attended Jerardo Herring here in the Intensive Care Unit. Patient has been examined and chart reviewed. I spoke at length with the nurse at the bedside and with his niece on Facetime video, she was on the phone with him. He is still intermittently tachypneic but is requiring less of a fraction of inspired oxygen. He is seated at the bedside this morning. He has been able to eat breakfast. T-max overnight 97.3, blood pressure is generally 114 to 130 systolic, heart rate in the 60s to 70s with a sinus mechanism. Ins and outs midnight to midnight 1640 ml in with 1055 ml out. The most recent laboratories shows a white blood cell count of 14.0 with a hemoglobin of 15.7, platelet count of 276,000, 80% segs, no bands today. Sodium 141, K 5.0, chloride 105, CO2 31, BUN 25, creatinine is 0.95, glucose of 130. Ferritin 1437, down from 2907 on the 2nd. BNP down to 793. Fibrinogen down to 557 from 760. Medication list has been reviewed. He remains on Decadron, Enoxaparin, Remdesivir, Baricitinib as well as Levaquin. OBJECTIVE: GENERAL: He is seated on the bedside. BiPAP mask in place. He is mildly tachypneic but is able to be conversant with his niece on the phone. HEENT: Pupils reactive. Sclera clear. Trachea is in the midline. CHEST: Diminished but symmetric expansion, there are dependent crackles. No convincing rhonchi. No rubs. No other adventitious breath sounds are identified. CARDIAC: Regular with no gallop. Peripheral pulses are palpable. No edema. ABDOMEN: Obese, soft with active bowel sounds. No obvious organomegaly or masses. EXTREMITIES: Without cyanosis or clubbing. NEUROLOGIC: He is awake, alert and appropriate. PSYCHIATRIC: Normal mood and affect. IMPRESSION: 1. COVID pneumonia with hypoxemia. 2. Hypoxemic respiratory failure. RECOMMENDATIONS: At this point I would continue his current therapy. Procalcitonin remains elevated at 4.35 and therefore I would continue his current antimicrobials. His current COVID regimen appears reasonable and my hopes is that we have reached the peak of his degree of dysfunction. I would continue with CPAP for now and use Vapotherm with whatever amount of oxygen needed to keep the sats greater than 85 when he is off. We certainly should try to have him prone while in bed and keep him upright as much as possible. We need to continue to work on strengthening as well. Ulcer prophylaxis is in place. At this point we will proceed as outlined above. He does remain critically ill with the high likelihood of compromise. Further recommendations will be made in the progress records as new information becomes available.
[2021-05-14] MEDS: MAALOX 30 ML SUSP *UDC PO PRN ×2 (10:36→16:09)
[2021-05-14 12:45] LABS: CK-MB VALUE MASS < 1.0 NG/ML (<3.6); CPK CREATINE PHOSPHOKINASE 222 U/L (39-308); MB/CK RELATIVE INDEX 0.45 (< OR =4); TROPONIN I < 0.02 NG/ML (< 0.10)
--- NOTE | 2021-05-14 13:07 | ECGEPIP ---
[facility] Test Date: 2021-05-14 Pat Name: IVAN CHAVIRA Department: Room: [place] [address] Gender: Male Placement Coordinator: DENISA : 1965 Requested By: PATRICIO COBB Order Number: [id number] Reading MD: Nini Barragan Measurements Intervals [place] Rate: 61 P: 7 MA: 148 QRS: 11 QRSD: 92 T: -5 QT: 406 QTc: 408 Interpretive Statements Normal sinus rhythm RATE SLOWER NONSPECIFIC STTWAVE ABN C/W 05/10/21 Electronically Signed on 05-14-2021 13:07:49 EDT by Nini Barrgaan
[2021-05-14 14:12] LABS: BODY FLUID CULTURE Not indicated. (.); LEGIONELLA ANTIGEN URINE Negative (Negative); ORGANISM ID Not indicated. (.); SPECIMEN SOURCE Urine (.); URINE STREP PNEUMONIAE ANTIGEN Negative (Negative)
--- NOTE | 2021-05-14 14:17 | IPNPDOC ---
Text Note Date of Service The patient was seen on 05/14/21. NOTE Subjective: Patient is a 56-year-old male was Covid positive who presented [facility] with confusion and dyspnea. Patient has been doing better on CPAP therapy and maintaining his saturations in the upper 90s. Patient was complaining some burning with on inspiration earlier today. Patient says that this pain is worse when he sits up and better when he is laying down. Patient is otherwise doing well. Review of systems: General: Patient denies fevers HEENT: Patient denies headaches Cardiovascular: Patient denies chest pain Respiratory: Patient reports shortness of breath and cough especially when sitting up GI: Patient denies abdominal pain, nausea, vomiting, diarrhea : Patient denies increased frequency or pain with urination Extremities: Patient denies swelling or pain in extremities Neurological: Patient denies numbness or tingling in legs Physical exam: Vitals: See below General: Alert and oriented male patient who is sitting laying on his side in bed with CPAP on when I walked in. Patient did not appear to be in any acute distress. HEENT: Normocephalic, atraumatic, moist mucous membranes. Neck: No lymphadenopathy or thyromegaly Cardiac: Regular rate and rhythm, no murmurs, normal S1, normal S2 Pulm: Clear to auscultation bilaterally. No wheezes, rhonchi, rales Abd: Nondistended, nontender to palpation, normal bowel sounds Ext: No edema bilateral lower extremities Labs: See below Imaging: No new imaging has been performed Assessment/plan: 56-year-old Covid positive male patient from [place] who presented with confusion and dyspnea secondary to acute hypoxic respiratory failure from Covid pneumonia 1. Acute hypoxic respiratory failure. Patient was saturating in the 70s on room air. Patient is doing better on CPAP. We will attempt to wean down the patient's oxygen need and his pressures and we are able to get the patient on Vapotherm. Patient states that he is doing better laying down than sitting up today. 2. Covid pneumonia. Continue remdesivir and dexamethasone. Patient's inflammatory markers have continued to improve. Patient is on Lovenox subcutaneous for DVT prophylaxis. 3. Burning pain in chest. Cardiac markers were performed and are negative. This is most likely secondary to the Covid pneumonia. 4. Blood culture contaminant. Blood culture grew back Micrococcus luteus which is a contaminant. We will continue to monitor. DVT Prophylaxis: Lovenox Disposition: Pending improvement in the patient's oxygen status. VS,Fishbone, I+O VS, Fishbone, I+O Laboratory Tests 05/14/21 05:24 Vital Signs Date Time Temp Pulse Resp B/P (MAP) Pulse Ox O2 Delivery O2 Flow Rate FiO2 05/14/21 13:00 52 33 90/53 (65) 93 NIPPV (BIPAP/CPAP) 50 05/14/21 12:00 97.9 05/12/21 04:00 40.0 I&O- Last 24 Hours up to 6 AM 05/14/21 06:00 Intake Total 1530 ml Output Total 1155 ml Balance 375 ml PATRICIO COBB DO May 14, 2021 14:17
[2021-05-14] MEDS: REMDESIVIR 100 MG in NS 250 ML IV SCH (16:09)
[2021-05-14] MEDS: SODIUM CHLORIDE 0.9% INJ 10 ML SYR IV SCH (17:21)
[2021-05-14] MEDS: PANTOPRAZOLE 40MG TAB (PROTONIX) PO SCH (20:25)
[2021-05-14] MEDS: RAMELTEON 8 MG TAB (ROZEREM) PO PRN (20:25)
[2021-05-14] MEDS: LORazepam 2 MG/ML VIAL IV PRN (21:18)
[2021-05-15] VITALS (13 sets, daily range): BP systolic 90–123; BP diastolic 47–67; O2SAT 87–96
[2021-05-15 05:09] LABS: HEMATOCRIT 48.5 % (42.0-52.0); HEMOGLOBIN 16.4 g/dl (13.5-17.5); MEAN CORPUSCULAR HGB CONC 33.8 g/dl (32.0-36.5); MEAN CORPUSCULAR VOLUME 91.7 fl (80.0-96.0); PLATELET COUNT, AUTOMATED 305 10^3/uL (150-450); RED BLOOD COUNT 5.29 10^6/uL (4.30-6.10); WHITE BLOOD COUNT 12.7 10^3/uL (4.0-10.0)
[2021-05-15 05:37] LABS: BLOOD UREA NITROGEN 23 MG/DL (7-18); CALCIUM LEVEL 8.3 MG/DL (8.5-10.1); CARBON DIOXIDE LEVEL 34 MEQ/L (21-32); CHLORIDE LEVEL 103 MEQ/L (98-107); CREATININE FOR GFR 0.96 MG/DL (0.70-1.30); GLOMERULAR FILTRATION RATE > 60.0 (>56); GLUCOSE, FASTING 114 MG/DL (70-100); MAGNESIUM LEVEL 2.6 MG/DL (1.8-2.4); POTASSIUM SERUM 4.8 MEQ/L (3.5-5.1); SODIUM LEVEL 140 MEQ/L (136-145)
[2021-05-15 05:47] LABS: ATYPICAL LYMPH 1 % (0-5); BASOPHILS 1 % (0-1); LYMPHOCYTES 10 % (16-44); MONOCYTES 5 % (0-5); MYELOCYTES 2 % (0-0); NEUTROPHILS 80 % (28-66)
[2021-05-15 05:48] LABS: PLATELET ESTIMATE NORMAL (NORMAL)
[2021-05-15] MEDS: LevoFLOXacin 750 MG TABLET PO SCH (06:15)
[2021-05-15] MEDS: guaiFENesin ER 600 MG TAB PO SCH ×2 (08:46→20:30)
[2021-05-15] MEDS: ASPIRIN 81MG ENTERIC TABLET PO SCH (08:46)
[2021-05-15] MEDS: ENOXAPARIN 40MG/0.4ML SYRINGE (J1650 PER 10MG) SC SCH ×2 (08:46→20:30)
[2021-05-15] MEDS: BARICITINIB 2MG TABLET (OLUMIANT) FOR EUA PO SCH (08:46)
[2021-05-15] MEDS: dexameTHASONE 4 MG/ML 1ML VIAL (J1100 PER 1MG) IV SCH (08:47)
[2021-05-15] MEDS ORDERED: LIDOCAINE 1% MDV 20ML VIAL As Ordered ONE (08:52)
--- NOTE | 2021-05-15 09:54 | CCN ---
PULMONARY CRITICAL CARE PROGRESS NOTE DATE: 05/15/2021 SUBJECTIVE: I again attended to Jerardo Herring in the Intensive Care Unit. Patient has been examined, chart reviewed and I spoke at length with the nurse at the bedside. T-max overnight 96.7, blood pressure 90-120 systolic, heart rate generally in the 60s with a sinus mechanism. Respiratory rate is better today and although charted at 42 currently sitting at the bedside eating breakfast his respiratory rate is 28 without accessory muscle use. Ins and outs midnight to midnight 1140 mL out with 1475 mL out. Most recent laboratories show: Sodium 140, K 4.8, chloride 103, CO2 34, BUN 23, creatinine 0.96, glucose 114. White blood cell count 12.7, hemoglobin 16.4, platelet count 305,000, 80% segs, 1% bands today. Inflammatory markers are not due to be repeated today. OBJECTIVE: On exam he is seated on the bedside eating breakfast. He is awake, alert and appropriate. He again speaks only Montenegrin. HEENT: Pupils reactive, sclera clear, trachea is in the midline. CHEST: Shows crackles at the bases, but no rhonchus or wheeze throughout although I do believe there is a faint end-expiratory wheeze at the bases that does improve; however, after a cough and deep inspiration. No other adventitious breath sounds were identified. CARDIAC: Regular with no murmur or gallop. Peripheral pulses are palpable. No edema. ABDOMEN: Soft, nontender with active bowel sounds, without organomegaly or masses. EXTREMITIES: Without cyanosis or clubbing. NEUROLOGIC: He is awake, alert and appropriate. PSYCHIATRIC: Normal mood and affect. IMPRESSION: 1. COVID pneumonia. 2. Hypoxemic respiratory failure on the base of the above. RECOMMENDATIONS: At this point we will continue his current regimen and I would continue his antimicrobials for now especially in view of his elevated procalcitonin as well as his low level bandemia. His oxygenation status is better over the last 48 hours. I would continue to increase his out of bed as able. He will be followed closely clinically. Further recommendations will be made in the progress records as new information becomes available.
--- NOTE | 2021-05-15 14:50 | IPNPDOC ---
Text Note Date of Service The patient was seen on 05/15/21. NOTE Subjective: Patient is a 56-year-old male who is Covid positive who presented initially with confusion and dyspnea. Patient remained on CPAP therapy but he was able to tolerate Vapotherm while being awake. Patient says that the burning pain that he had on inspiration is better today. Patient is otherwise doing well today. Review of systems: General: Patient denies fevers HEENT: Patient denies headaches Cardiovascular: Patient denies chest pain Respiratory: Patient reports shortness of breath especially with the mask on. GI: Patient reports his abdominal pain has improved and denies any nausea. : Patient denies increased frequency or pain with urination Physical exam: Vitals: See below General: Alert and oriented male patient who was laying in bed when I walked in. Patient was able to sit up without any difficulty. Patient has CPAP mask on him. Patient did not appear to be in any acute distress. HEENT: Normocephalic, atraumatic, moist mucous membranes. Neck: No lymphadenopathy or thyromegaly Cardiac: Regular rate and rhythm, no murmurs, normal S1, normal S2 Pulm: Clear to auscultation bilaterally. No wheezes, rhonchi, rales Abd: Nondistended, nontender to palpation, normal bowel sounds Ext: No edema bilateral lower extremities Labs: See below Imaging: No new imaging has been performed Assessment/plan: 56-year-old Covid positive male who presented with confusion and dyspnea secondary to acute hypoxic respiratory failure secondary to COVID-19 pneumonia. 1. Acute hypoxic respiratory failure. Patient was saturating in the 70s on room air when he initially presented. Patient is doing better on CPAP and has been able to tolerate being on Vapotherm for some time today. We will continue to attempt to wean down the patient. 2. COVID-19 pneumonia. Patient received his last dose of remdesivir today. We will continue with dexamethasone. Patient will also continue on levofloxacin as the patient procalcitonin is still elevated. Patient is on Baricitinib day 4 of 14. 3. Burning pain in chest. Cardiac markers were negative. Likely secondary to Covid pneumonia which is improved. 4. Blood culture contaminant. Blood culture grew back Micrococcus luteus which is a contaminant. Continue to monitor. Patient is on levofloxacin as procalcitonin is elevated as above. DVT Prophylaxis: Lovenox Disposition: Pending improvement the patient's oxygen status. VS,Fishbone, I+O VS, Fishbone, I+O Laboratory Tests 05/15/21 04:50 Vital Signs Date Time Temp Pulse Resp B/P (MAP) Pulse Ox O2 Delivery O2 Flow Rate FiO2 05/15/21 10:00 64 93 HVNI-Vapotherm 30.0 90 05/15/21 08:00 97.0 40 111/62 (78) I&O- Last 24 Hours up to 6 AM 05/15/21 06:00 Intake Total 1350 ml Output Total 1050 ml Balance 300 ml PATRICIO COBB DO May 15, 2021 14:50
[2021-05-15] MEDS: RAMELTEON 8 MG TAB (ROZEREM) PO PRN (20:30)
[2021-05-15] MEDS: PANTOPRAZOLE 40MG TAB (PROTONIX) PO SCH (20:30)
[2021-05-16] VITALS (9 sets, daily range): BP systolic 80–123; BP diastolic 46–70
[2021-05-16] MEDS: LevoFLOXacin 750 MG TABLET PO SCH (05:36)
[2021-05-16] MEDS: guaiFENesin ER 600 MG TAB PO SCH ×2 (08:26→20:43)
[2021-05-16] MEDS: dexameTHASONE 4 MG/ML 1ML VIAL (J1100 PER 1MG) IV SCH (08:26)
[2021-05-16] MEDS: ENOXAPARIN 40MG/0.4ML SYRINGE (J1650 PER 10MG) SC SCH ×2 (08:26→20:44)
[2021-05-16] MEDS: BARICITINIB 2MG TABLET (OLUMIANT) FOR EUA PO SCH (08:26)
[2021-05-16] MEDS: ASPIRIN 81MG ENTERIC TABLET PO SCH (08:26)
--- NOTE | 2021-05-16 10:22 | IPNPDOC ---
Subjective Date Seen The patient was seen on 05/16/21. Subjective Chief Complaint/HPI Patient still complains of shortness of breath with exertion (toiletry and ambulation). He has intermittent dry cough. His niece and was on the phone helping with haitian translation. General: Denies: Chills, Night Sweats, Malaise Constitutional: Denies: Fever ENT: Denies: Sinus Congestion Pulmonary: Reports: Dyspnea, Cough Cardiovascular: Reports: Orthopnea; Denies: Chest Pain, Palpitations Gastrointestinal: Reports: Nausea, Vomiting, Abdominal Pain Neurological: Reports: Weakness, Numbness Objective Physical Examination General Exam: Positive: Alert, Cooperative Eye Exam: Negative: Sclera icteric ENT Exam: Positive: Atraumatic Neck Exam: Positive: Supple Chest Exam: Positive: Rhonchi Heart Exam: Positive: Rate Normal, Regular Rhythm Abdomen Exam: Positive: Normal bowel sounds, Soft; Negative: Tenderness Extremity Exam: Negative: Edema Neuro Exam: Positive: Normal Speech Psych Exam: Positive: Mental status NL, Mood NL Assessment /Plan Assessment This is a 56yo Male with no significant past medical history admitted here with COVID-19 ARDS requiring HFNC. 1. ARDS 2. COVID-19 3. Superimposed bacterial PNA Plan/VTE VTE Prophylaxis Ordered?: Yes Plan 1. Continue with Baricitnib, Remdesvir, and Decadrone. 2. HFNC/vapotherm 80%/30LPM support. He's low threshold for intubation. Briefly spoke with patient, his , and niece regarding code status. He wishes to remain full code. 3. Encourage self proning. 4. Strict monitoring of I/O. Keep net 0. 5. Levaquin for superimposed bacterial PNA. Disposition continue ICU care. VS, I&O, 24H, Fishbone Vital Signs/I&O Vital Signs Date Time Temp Pulse Resp B/P (MAP) Pulse Ox O2 Delivery O2 Flow Rate FiO2 05/16/21 09:38 92 30.0 80 05/16/21 09:00 63 26 HVNI-Vapotherm 05/16/21 08:00 97.4 112/64 (80) I&O- Last 24 Hours up to 6 AM 05/16/21 06:00 Intake Total 1580 ml Output Total 2150 ml Balance -570 ml Laboratory Data 24H LABS Laboratory Tests 2 05/16/21 05:04: Procalcitonin 0.15 Microbiology Microbiology 05/10/21 Blood Culture - Final, Complete NO GROWTH AFTER 5 DAYS 05/10/21 Blood Culture - Final, Complete Micrococcus Luteus AYE CARTER MD May 16, 2021 10:22
--- NOTE | 2021-05-16 13:59 | IPNPDOC ---
Text Note Date of Service The patient was seen on 05/16/21. NOTE Subjective: Patient is a 56-year-old male who is Covid positive presented initially with confusion and dyspnea. Patient is now able to tolerate Vapotherm awake in CPAP while sleeping. Patient says he is doing well. Patient is proning more than he has been over the past few days. Patient is otherwise feeling well. Review of systems: General: Patient denies fevers HEENT: Patient denies headaches Cardiovascular: Patient denies chest pain Respiratory: Patient denies shortness of breath, cough GI: Patient denies abdominal pain, nausea, vomiting, diarrhea Physical exam: Vitals: See below General: Alert and oriented male patient who was laying prone when I walked in the room. Patient was able to sit up without difficulty. Patient had Vapotherm nasal cannula in place. Patient not appear to be in any acute distress. HEENT: Normocephalic, atraumatic, moist mucous membranes. Neck: No lymphadenopathy or thyromegaly Cardiac: Regular rate and rhythm, no murmurs, normal S1, normal S2 Pulm: Clear to auscultation bilaterally. No wheezes, rhonchi, rales Abd: Nondistended, nontender to palpation, normal bowel sounds Ext: No edema bilateral lower extremities Labs: See below Imaging: No new imaging has been performed Assessment/plan: 56-year-old Cherri positive male patient who presented with confusion and dyspnea secondary to acute hypoxic respiratory failure secondary to COVID-19 pneumonia. 1. Acute hypoxic respiratory failure. Patient was saturating initially in the 70s on room air when he presented. Patient is doing better on Vapotherm which we will attempt to continue to wean down. 2. COVID-19 pneumonia. She does last dose of remdesivir yesterday. Continue with dexamethasone and baricitinib. Patient is procalcitonin has improved but will continue levofloxacin for a few more days. Patient is on day 5 of 14 of baricitinib. 3. Burning pain in chest. Cardiac markers negative. Likely secondary to Covid pneumonia. 4. Blood culture contaminant. Blood culture back Micrococcus luteus which is a contaminant. Continue to monitor. Patient on levofloxacin for possible superimposed bacterial pneumonia. DVT Prophylaxis: Lovenox Disposition: Pending improvement of patient's oxygen status. VS,Fishbone, I+O VS, Fishbone, I+O Vital Signs Date Time Temp Pulse Resp B/P (MAP) Pulse Ox O2 Delivery O2 Flow Rate FiO2 05/16/21 12:00 30.0 80 05/16/21 12:00 97.9 72 26 111/68 (82) 94 HVNI-Vapotherm I&O- Last 24 Hours up to 6 AM 05/16/21 06:00 Intake Total 1580 ml Output Total 2150 ml Balance -570 ml PATRICIO COBB DO May 16, 2021 13:59
[2021-05-16] MEDS ORDERED: LIDOCAINE 1% MDV 20ML VIAL As Ordered ONE (14:00)
--- NOTE | 2021-05-16 16:38 | REP ---
INDICATION: poor vascular office. COMPARISON: None. TECHNIQUE: The procedure was performed under the direct supervision of Dr. Arrieta. The risks and benefits of the procedure were explained to the patient and informed consent was obtained. The consent had to be obtained verbally as the patient is a in an aerosolized COVID room and no paperwork is allowed in the room. The procedure was performed in the ICU at the bedside. The right brachial vein was localized using ultrasound guidance. The skin was prepped and draped in a sterile fashion. 1 mL of 1% lidocaine was used as a local anesthetic. Using ultrasound guidance the brachial vein was cannulated and a 0.018 guidewire was inserted. The needle was removed and a 5 Marshallese dilator and peel-away sheath was inserted over the guide wire. A 5 Marshallese dual lumen catheter was cut to length of 38 cm. The dilator was removed and the catheter was inserted over the guide wire. A portable chest x-ray was performed and the image demonstrates the tip of the catheter to be in the SVC. The peel-away sheath was removed and the catheter was flushed with heparinized saline as per Hospital protocol. The catheter was affixed to the skin and a sterile dressing was applied. Estimated blood loss: Less than 1 mL The patient tolerated the procedure well and there were no immediate complications. FINDINGS: None IMPRESSION: PICC line insertion right brachial vein with the tip ending in the SVC. <Electronically signed by Farhat Marte > 05/16/21 1629 <Electronically signed by Jorge A Arrieta > 05/16/21 [id number]
[2021-05-16 17:06] LABS: INR 1.05; PROTHROMBIN TIME 14.1 SECONDS (12.7-14.5)
[2021-05-16 17:07] LABS: PARTIAL THROMBOPLASTIN TIME 29.3 SECONDS (25.9-37.0)
[2021-05-16 17:27] LABS: ALBUMIN 2.8 GM/DL (3.2-5.2); BILIRUBIN,DIRECT 0.3 MG/DL (0.0-0.2); BILIRUBIN,TOTAL 0.7 MG/DL (0.2-1.0); TOTAL PROTEIN 5.8 GM/DL (6.4-8.2)
[2021-05-16] MEDS: SODIUM CHLORIDE 0.9% INJ 10 ML SYR IV SCH (18:00)
[2021-05-16] MEDS: PANTOPRAZOLE 40MG TAB (PROTONIX) PO SCH (20:43)
[2021-05-16] MEDS: RAMELTEON 8 MG TAB (ROZEREM) PO PRN (20:44)
[2021-05-17] VITALS: BP 109/59
[2021-05-17 04:30] VITALS: BP 112/69
[2021-05-17 04:51] LABS: HEMATOCRIT 46.2 % (42.0-52.0); HEMOGLOBIN 15.9 g/dl (13.5-17.5); MEAN CORPUSCULAR HEMOGLOBIN 30.9 pg (27.0-33.0); MEAN CORPUSCULAR HGB CONC 34.4 g/dl (32.0-36.5); MEAN CORPUSCULAR VOLUME 89.9 fl (80.0-96.0); PLATELET COUNT, AUTOMATED 333 10^3/uL (150-450); RED BLOOD COUNT 5.14 10^6/uL (4.30-6.10); WHITE BLOOD COUNT 15.9 10^3/uL (4.0-10.0)
[2021-05-17 05:09] LABS: ATYPICAL LYMPH 2 % (0-5); LYMPHOCYTES 8 % (16-44); MONOCYTES 2 % (0-5); NEUTROPHILS 88 % (28-66); PLATELET ESTIMATE NORMAL (NORMAL)
[2021-05-17 05:12] LABS: BLOOD UREA NITROGEN 17 MG/DL (7-18); CREATININE FOR GFR 0.79 MG/DL (0.70-1.30); GLOMERULAR FILTRATION RATE > 60.0 (>56); GLUCOSE, FASTING 96 MG/DL (70-100)
[2021-05-17 05:13] LABS: CALCIUM LEVEL 8.1 MG/DL (8.5-10.1); CARBON DIOXIDE LEVEL 33 MEQ/L (21-32); CHLORIDE LEVEL 104 MEQ/L (98-107); MAGNESIUM LEVEL 2.2 MG/DL (1.8-2.4); POTASSIUM SERUM 4.4 MEQ/L (3.5-5.1); SODIUM LEVEL 141 MEQ/L (136-145)
[2021-05-17] MEDS: LevoFLOXacin 750 MG TABLET PO SCH (06:24)
[2021-05-17] MEDS: SODIUM CHLORIDE 0.9% INJ 10 ML SYR IV SCH ×2 (06:25→18:04)
[2021-05-17 08:00] VITALS: BP 93/59
[2021-05-17] MEDS: dexameTHASONE 4 MG/ML 1ML VIAL (J1100 PER 1MG) IV SCH (08:48)
[2021-05-17] MEDS: ENOXAPARIN 40MG/0.4ML SYRINGE (J1650 PER 10MG) SC SCH ×2 (08:49→21:12)
[2021-05-17] MEDS: ASPIRIN 81MG ENTERIC TABLET PO SCH (08:49)
[2021-05-17] MEDS: BARICITINIB 2MG TABLET (OLUMIANT) FOR EUA PO SCH (08:49)
[2021-05-17] MEDS: guaiFENesin ER 600 MG TAB PO SCH ×2 (08:49→21:11)
--- NOTE | 2021-05-17 09:21 | IPNPDOC ---
Subjective Date Seen The patient was seen on 05/17/21. Subjective Chief Complaint/HPI Patient was seen and examined. Patient has no complaint today. He still remains on Vapotherm/high flow nasal cannula 30 L/min / 80% FiO2 during the day and CPAP therapy during the night. He is doing self intermittent proning. He denies fever, chills, orthopnea, chest pain, PND. General: Denies: Chills, Night Sweats Constitutional: Denies: Fever Skin: Denies: Rash Pulmonary: Reports: Dyspnea, Cough Cardiovascular: Denies: Chest Pain, Orthopnea, Edema Gastrointestinal: Denies: Nausea, Vomiting, Abdominal Pain Neurological: Denies: Weakness, Numbness Objective Physical Examination General Exam: Positive: Alert, Cooperative Eye Exam: Negative: Sclera icteric ENT Exam: Positive: Atraumatic Neck Exam: Positive: Supple Chest Exam: Positive: Rhonchi (Bilateral rhonchi in all lung avilez but significant improvement compared to yesterday) Heart Exam: Positive: Rate Normal, Regular Rhythm Abdomen Exam: Positive: Normal bowel sounds, Soft; Negative: Tenderness Extremity Exam: Negative: Edema Neuro Exam: Positive: Normal Speech Psych Exam: Positive: Mental status NL, Mood NL Assessment /Plan Assessment This is a 56yo Male with no significant past medical history admitted here with COVID-19 ARDS requiring HFNC. 1. ARDS 2. COVID-19 3. Superimposed bacterial PNA Plan/VTE VTE Prophylaxis Ordered?: Yes Plan 1. Continue with Baricitnib, Remdesvir, and Decadrone. 2. HFNC/vapotherm 80%/30LPM support with intermittent CPAP therapy at night.. He 's low threshold for intubation. Family discussion with decision for trial intubation. Therefore patient remains full code. 3. Encourage self proning. 4. Strict monitoring of I/O. Keep net 0. Lasix as needed. 5. Levaquin for superimposed bacterial PNA. Disposition Continue ICU care. VS, I&O, 24H, Fishbone Vital Signs/I&O Vital Signs Date Time Temp Pulse Resp B/P (MAP) Pulse Ox O2 Delivery O2 Flow Rate FiO2 05/17/21 09:07 30 05/17/21 08:00 79 21 93/59 (70) 90 HVNI-Vapotherm 30.0 05/17/21 04:30 97.1 I&O- Last 24 Hours up to 6 AM 05/17/21 06:00 Intake Total 1800 ml Output Total 2750 ml Balance -950 ml Laboratory Data 24H LABS Laboratory Tests 2 05/16/21 16:00: Prothrombin Time 14.1H, Prothromb Time International Ratio 1.05, Activated Partial Thromboplast Time 29.3, Fibrinogen 498H, Ferritin 908H, Total Bilirubin 0.7, Direct Bilirubin 0.3H, Aspartate Amino Transf (AST/SGOT) 20, Alanine Aminotransferase (ALT/SGPT) 41, Alkaline Phosphatase 37L, Lactate Dehydrogenase 588H, HX-Ufj-T-Type Natriuretic Peptide 203H, Total Protein 5.8L, Albumin 2.8L, Albumin/Globulin Ratio 0.9 05/17/21 04:40: Immature Granulocyte % (Auto) , Neutrophils (%) (Auto) , Nucleated Red Blood Cells % (auto) 0.0, Neutrophils 88H, Lymphocytes (Manual) 8L, Monocytes (Manual) 2, Atypical Lymphocytes 2, Platelet Estimate NORMAL, Anion Gap 4L, Glomerular Filtration Rate > 60.0, Calcium Level 8.1L, Magnesium Level 2.2 CBC/BMP Laboratory Tests 05/17/21 04:40 Microbiology Microbiology 05/10/21 Blood Culture - Final, Complete NO GROWTH AFTER 5 DAYS 05/10/21 Blood Culture - Final, Complete Micrococcus Luteus AYE CARTER MD May 17, 2021 09:21
[2021-05-17 12:00] VITALS: BP 100/55
--- NOTE | 2021-05-17 13:50 | IPNPDOC ---
Text Note Date of Service The patient was seen on 05/17/21. NOTE Subjective: Patient is a 56-year-old male who is Covid positive [facility] with acute confusion and dyspnea. Patient is now able to tolerate Vapotherm while awake and CPAP while sleeping. Patient says he is doing well. Patient has been proning more over the past few days. Patient is otherwise feeling well. Review of systems: General: Patient denies fevers HEENT: Patient denies headaches Cardiovascular: Patient denies chest pain Respiratory: Patient denies shortness of breath, cough Physical exam: Vitals: See below General: Alert and oriented male patient who was laying prone with Vapotherm on when I walked in. Patient was able to sit up without any difficulty. Patient did not appear to be in any acute distress. HEENT: Normocephalic, atraumatic, moist mucous membranes. Neck: No lymphadenopathy or thyromegaly Cardiac: Regular rate and rhythm, no murmurs, normal S1, normal S2 Pulm: Clear to auscultation bilaterally. No wheezes, rhonchi, rales Abd: Nondistended, nontender to palpation, normal bowel sounds Ext: No edema bilateral lower extremities Labs: See below Imaging: No new imaging has been performed Assessment/plan: 56-year-old Covid positive male patient presented with confusion and dyspnea secondary to acute hypoxic respiratory failure secondary to COVID-19 pneumonia 1. Acute hypoxic respiratory failure. Patient was saturating initially in the 70s on room air when he presented. Patient is doing slightly better on Vapotherm. We will attempt to wean this down. Patient was on 30 L/min and FiO2 of 80%. 2. COVID-19 pneumonia. Received last dose of remdesivir 2 days ago. Continue with dexamethasone baricitinib. Procalcitonin has improved so Levaquin can be stopped. Patient is on day 6 of 14 at baricitinib. 3. Burning pain in chest. Cardiac markers were negative. This is likely secondary to Covid pneumonia. This is resolved. DVT Prophylaxis: Lovenox Disposition: Pending improvement in the patient oxygen status. VS,Fishbone, I+O VS, Fishbone, I+O Laboratory Tests 05/17/21 04:40 Vital Signs Date Time Temp Pulse Resp B/P (MAP) Pulse Ox O2 Delivery O2 Flow Rate FiO2 05/17/21 09:16 NIPPV (BIPAP/CPAP) 50 05/17/21 08:00 93 30.0 05/17/21 08:00 79 21 93/59 (70) 05/17/21 04:30 97.1 I&O- Last 24 Hours up to 6 AM 05/17/21 06:00 Intake Total 1800 ml Output Total 2750 ml Balance -950 ml PATRICIO COBB DO May 17, 2021 13:50
[2021-05-17 16:00] VITALS: BP 104/56
[2021-05-17 20:00] VITALS: BP 97/55
[2021-05-17] MEDS: RAMELTEON 8 MG TAB (ROZEREM) PO PRN (21:11)
[2021-05-17] MEDS: PANTOPRAZOLE 40MG TAB (PROTONIX) PO SCH (21:12)
[2021-05-17] MEDS: LORazepam 2 MG/ML VIAL IV PRN (21:12)
[2021-05-18] VITALS (8 sets, daily range): BP systolic 110–126; BP diastolic 53–83
[2021-05-18] MEDS: LevoFLOXacin 750 MG TABLET PO SCH (05:32)
[2021-05-18] MEDS: SODIUM CHLORIDE 0.9% INJ 10 ML SYR IV SCH ×2 (05:33→17:00)
[2021-05-18 06:03] LABS: HEMATOCRIT 45.2 % (42.0-52.0); HEMOGLOBIN 15.7 g/dl (13.5-17.5); MEAN CORPUSCULAR HEMOGLOBIN 31.3 pg (27.0-33.0); MEAN CORPUSCULAR HGB CONC 34.7 g/dl (32.0-36.5); PLATELET COUNT, AUTOMATED 349 10^3/uL (150-450); RED BLOOD COUNT 5.02 10^6/uL (4.30-6.10); WHITE BLOOD COUNT 13.9 10^3/uL (4.0-10.0)
[2021-05-18 06:33] LABS: ALT/SGPT 22 U/L (12-78); BLOOD UREA NITROGEN 17 MG/DL (7-18); CALCIUM LEVEL 6.9 MG/DL (8.5-10.1); CARBON DIOXIDE LEVEL 28 MEQ/L (21-32); CHLORIDE LEVEL 110 MEQ/L (98-107); CREATININE FOR GFR 0.62 MG/DL (0.70-1.30); GLOMERULAR FILTRATION RATE > 60.0 (>56); GLUCOSE, FASTING 98 MG/DL (70-100); LDH LACTATE DEHYDROGENASE 425 U/L (87-241); POTASSIUM SERUM 3.7 MEQ/L (3.5-5.1); SODIUM LEVEL 143 MEQ/L (136-145)
[2021-05-18 06:34] LABS: ALBUMIN 2.2 GM/DL (3.2-5.2); BILIRUBIN,TOTAL 0.6 MG/DL (0.2-1.0); TOTAL PROTEIN 4.6 GM/DL (6.4-8.2); TROPONIN I < 0.02 NG/ML (< 0.10)
[2021-05-18 06:57] LABS: ATYPICAL LYMPH 2 % (0-5); EOSINOPHILS 1 % (0-3); LYMPHOCYTES 7 % (16-44); MONOCYTES 4 % (0-5); MYELOCYTES 1 % (0-0); NEUTROPHILS 85 % (28-66)
[2021-05-18 07:01] LABS: PLATELET ESTIMATE NORMAL (NORMAL); SMUDGE CELLS 1+
[2021-05-18] MEDS: ENOXAPARIN 40MG/0.4ML SYRINGE (J1650 PER 10MG) SC SCH ×2 (08:21→21:02)
[2021-05-18] MEDS: ASPIRIN 81MG ENTERIC TABLET PO SCH (08:21)
[2021-05-18] MEDS: SODIUM CHLORIDE 0.9% INJ 10 ML SYR IV PRN (08:21)
[2021-05-18] MEDS: dexameTHASONE 4 MG/ML 1ML VIAL (J1100 PER 1MG) IV SCH (08:22)
[2021-05-18] MEDS: guaiFENesin ER 600 MG TAB PO SCH ×2 (08:22→21:02)
[2021-05-18] MEDS: BARICITINIB 2MG TABLET (OLUMIANT) FOR EUA PO SCH (08:22)
--- NOTE | 2021-05-18 09:44 | IPNPDOC ---
Subjective Date Seen The patient was seen on 05/18/21. Subjective Chief Complaint/HPI Patient was seen and examined. Patient states he is essentially feels about the same. He still admits to exertional dyspnea and dry cough. General: Denies: Chills, Fatigue Constitutional: Denies: Fever ENT: Denies: Sore Throat Skin: Denies: Rash Pulmonary: Reports: Dyspnea (Dyspnea with exertion.), Cough (Dry cough.) Cardiovascular: Denies: Chest Pain, Palpitations, Orthopnea Gastrointestinal: Denies: Nausea, Vomiting Neurological: Denies: Weakness, Numbness Objective Physical Examination General Exam: Positive: Alert, Cooperative Eye Exam: Negative: Sclera icteric ENT Exam: Positive: Atraumatic Neck Exam: Positive: Supple Chest Exam: Positive: Rhonchi Heart Exam: Positive: Rate Normal, Regular Rhythm Abdomen Exam: Positive: Normal bowel sounds, Soft; Negative: Tenderness Extremity Exam: Positive: Edema (Bilateral pitting edema up to the level of the knees) Neuro Exam: Positive: Normal Speech Psych Exam: Positive: Mental status NL, Mood NL Assessment /Plan Assessment This is a 56yo Male with no significant past medical history admitted here with COVID-19 ARDS requiring HFNC. 1. ARDS 2. COVID-19 3. Superimposed bacterial PNA 4. Bilateral lower extremity swelling Plan/VTE VTE Prophylaxis Ordered?: Yes Plan 1. Continue with Baricitnib (total 14 days), Remdesvir (total 5 days), and Decadrone (total 10 days). 2. HFNC/vapotherm 75%/30LPM support with intermittent CPAP therapy at night.. He's low threshold for intubation. Family discussion with decision for trial intubation. Therefore patient remains full code. 3. He is doing well with self proning. 4. Strict monitoring of I/O. Keep net 0. Lasix as needed. 5. Levaquin day 5 for superimposed bacterial PNA. Procalcitonin trending down. We can consider discontinuing antibiotic. 6. Transthoracic echocardiogram to evaluate RV function as I suspect he is de veloping cor pulmonale from ARDS. Disposition Continue ICU care. VS, I&O, 24H, Fishbone Vital Signs/I&O Vital Signs Date Time Temp Pulse Resp B/P (MAP) Pulse Ox O2 Delivery O2 Flow Rate FiO2 05/18/21 07:53 95 HVNI-Vapotherm 30.0 75 05/18/21 04:00 97.2 59 22 117/56 (76) I&O- Last 24 Hours up to 6 AM 05/18/21 06:00 Intake Total 920 ml Output Total 2250 ml Balance -1330 ml Laboratory Data 24H LABS Laboratory Tests 2 05/18/21 05:35: Immature Granulocyte % (Auto) , Neutrophils (%) (Auto) , Nucleated Red Blood Fabi ls % (auto) 0.0, Neutrophils 85H, Lymphocytes (Manual) 7L, Monocytes (Manual) 4, Eosinophils (Manual) 1, Myelocytes 1H, Atypical Lymphocytes 2, Smudge Cells 1+, Platelet Estimate NORMAL, D-Dimer, Quantitative 1014.87H, Anion Gap 5L, Glomerular Filtration Rate > 60.0, Calcium Level 6.9L, Total Bilirubin 0.6, Aspartate Amino Transf (AST/SGOT) 10, Alanine Aminotransferase (ALT/SGPT) 22, Alkaline Phosphatase 27L, Lactate Dehydrogenase 425H, Troponin I < 0.02, C- Reactive Protein, Quantitative 2.70H, Total Protein 4.6#L, Albumin 2.2#L, Albumin/Globulin Ratio 0.9 CBC/BMP Laboratory Tests 05/18/21 05:35 Microbiology Microbiology 05/10/21 Blood Culture - Final, Complete NO GROWTH AFTER 5 DAYS 05/10/21 Blood Culture - Final, Complete Micrococcus Luteus AYE CARTER MD May 18, 2021 09:44
--- NOTE | 2021-05-18 13:59 | IPNPDOC ---
Text Note Date of Service The patient was seen on 05/18/21. NOTE Subjective: Patient is a 56-year-old male was Covid positive who initially pre sented due to acute confusion and dyspnea. Patient is now tolerating Vapotherm throughout most of the day. Patient did not wear his CPAP last night and did well enough overnight on Vapotherm. Patient is having some leg swelling and does state that he has leg swelling when he walks. Patient is wondering if he can walk around the room. Patient states he is otherwise feeling well. Review of systems: General: Patient denies fevers HEENT: Patient denies headaches Cardiovascular: Patient denies chest pain Respiratory: Patient denies shortness of breath, cough GI: Patient denies abdominal pain, nausea, vomiting, diarrhea Extremities: Patient denies swelling or pain in extremities Physical exam: Vitals: See below General: Alert and oriented male patient who was laying prone in the bed with Vapotherm nasal cannula on when I walked in. Patient did not appear to be in any acute distress. HEENT: Normocephalic, atraumatic, moist mucous membranes. Neck: No lymphadenopathy or thyromegaly Cardiac: Regular rate and rhythm, no murmurs, normal S1, normal S2 Pulm: Clear to auscultation bilaterally. No wheezes, rhonchi, rales Abd: Nondistended, nontender to palpation, normal bowel sounds Ext: 1+ nonpitting edema in the bilateral lower extremities Labs: See below Imaging: No new imaging has been performed Assessment/plan: 56-year-old Covid positive male patient who initially presented with confusion and dyspnea secondary to acute hypoxic respiratory failure secondary to COVID-19 pneumonia 1. Acute hypoxic respiratory failure. Patient was saturating initially in the 70s on room air when he presented. Patient is doing better on Vapotherm. Patient is currently on 25 L/min and FiO2 of 70%. We will transfer the patient out of the intensive care unit to progressive care unit status on the [facility] wing of the hospital and continue to try to wean down his oxygen. 2. COVID-19 pneumonia. Received last dose of remdesivir 3 days ago. Continue with dexamethasone and baricitinib. Procalcitonin has improved so Levaquin can be stopped. Patient is on day 7 of 14 of baricitinib. 3. Burning pain in chest. Cardiac markers were negative. This is likely secondary to Covid pneumonia. This has resolved. DVT Prophylaxis: Lovenox Disposition: Pending improvement in the patient's oxygen status. Patient was transferred out of the ICU today. VS,Sánchez, I+O VSSánchez, I+O Laboratory Tests 05/18/21 05:35 Vital Signs Date Time Temp Pulse Resp B/P (MAP) Pulse Ox O2 Delivery O2 Flow Rate FiO2 05/18/21 12:00 25.0 70 05/18/21 12:00 97.8 85 22 126/67 (86) 92 HVNI-Vapotherm I&O- Last 24 Hours up to 6 AM 05/18/21 06:00 Intake Total 920 ml Output Total 2250 ml Balance -1330 ml PATRICIO COBB DO May 18, 2021 13:59
[2021-05-18] MEDS: PANTOPRAZOLE 40MG TAB (PROTONIX) PO SCH (21:02)
[2021-05-19 00:02] VITALS: BP 114/64
[2021-05-19 04:00] VITALS: BP 106/63
[2021-05-19] MEDS: LevoFLOXacin 750 MG TABLET PO SCH (05:45)
[2021-05-19] MEDS: SODIUM CHLORIDE 0.9% INJ 10 ML SYR IV SCH ×2 (05:45→17:45)
[2021-05-19 08:00] VITALS: BP 94/58
[2021-05-19] MEDS: guaiFENesin ER 600 MG TAB PO SCH ×2 (08:53→21:45)
[2021-05-19] MEDS: ASPIRIN 81MG ENTERIC TABLET PO SCH (08:53)
[2021-05-19] MEDS: BARICITINIB 2MG TABLET (OLUMIANT) FOR EUA PO SCH (08:53)
[2021-05-19] MEDS: ENOXAPARIN 40MG/0.4ML SYRINGE (J1650 PER 10MG) SC SCH ×2 (08:53→21:45)
[2021-05-19] MEDS: dexameTHASONE 4 MG/ML 1ML VIAL (J1100 PER 1MG) IV SCH (08:54)
[2021-05-19] MEDS: SODIUM CHLORIDE 0.9% INJ 10 ML SYR IV PRN (08:54)
--- NOTE | 2021-05-19 11:25 | IPNPDOC ---
Text Note Date of Service The patient was seen on 05/19/21. NOTE Subjective: Patient is a 56-year-old Covid positive male patient who initially presented with his confusion and dyspnea. Patient was transferred from the ICU to PCU status on the Covid floor yesterday. Patient did well with tabletop CPAP and has been weaned down to 20 L/min and FiO2 of 50% on Vapotherm. Patient has been proning as much as possible and states he is feeling better today. Review of systems: General: Patient denies fevers HEENT: Patient denies headaches Cardiovascular: Patient denies chest pain Respiratory: Patient denies shortness of breath, cough GI: Patient denies abdominal pain, nausea, vomiting, diarrhea : Patient denies increased frequency or pain with urination Extremities: Patient reports swelling in lower extremities Neurological: Patient denies numbness or tingling in legs Physical exam: Vitals: See below General: Alert and oriented male patient who was laying prone in bed with Vapotherm nasal cannula in place when I walked in. Patient not appear to be in any acute distress. HEENT: Normocephalic, atraumatic, moist mucous membranes. Neck: No lymphadenopathy or thyromegaly Cardiac: Regular rate and rhythm, no murmurs, normal S1, normal S2 Pulm: Clear to auscultation bilaterally. No wheezes, rhonchi, rales Abd: Nondistended, nontender to palpation, normal bowel sounds Ext: Nonpitting edema in bilateral lower extremities right greater than left Labs: See below Imaging: No new imaging has been performed Assessment/plan: 56-year-old Covid positive male patient was initially brought in with confusion and dyspnea secondary to acute hypoxic respiratory failure secondary to COVID-19 pneumonia 1. Acute hypoxic respiratory failure. Patient was initially saturating in the 70s on room air when he presented. Patient is doing better on Vapotherm. Patient is currently on 20 L/min at FiO2 of 50%. Patient is currently on the Covid floor on PCU status. We will continue to wean down the oxygen as tolerated. Dr. Atkinson is on consult and I appreciate his help treating the patient. 2. COVID-19 pneumonia. Received last dose of remdesivir 3 days ago, 05/16/2021. Continue dexamethasone and baricitinib. Levaquin has been discontinued today. Today is day 8 of 14 baricitinib. 3. Burning pain in chest. Cardiac markers were negative. Likely secondary to Covid pneumonia. This is resolved. DVT Prophylaxis: Lovenox Disposition: Pending clinical improvement. VS,Fishbone, I+O VS, Fishbone, I+O Vital Signs Date Time Temp Pulse Resp B/P (MAP) Pulse Ox O2 Delivery O2 Flow Rate FiO2 05/19/21 09:00 94 HVNI-Vapotherm 20.0 50 05/19/21 08:00 98.0 78 18 94/58 (70) I&O- Last 24 Hours up to 6 AM 05/19/21 06:00 Intake Total 1880 ml Balance 1880 ml PATRICIO COBB DO May 19, 2021 11:25
--- NOTE | 2021-05-19 11:40 | IPNPDOC ---
Subjective Date Seen The patient was seen on 05/19/21. Subjective Chief Complaint/HPI Patient is doing well with no complaint today. He denies of fever, chill, cough, shortness of breath, chest pain, orthopnea. General: Denies: Chills, Fatigue Constitutional: Denies: Fever ENT: Denies: Sore Throat Skin: Denies: Rash Pulmonary: Denies: Dyspnea, Cough Cardiovascular: Denies: Chest Pain, Palpitations, Orthopnea Gastrointestinal: Denies: Nausea, Vomiting, Abdominal Pain, Diarrhea Neurological: Denies: Weakness Objective Physical Examination General Exam: Positive: Alert, Cooperative Eye Exam: Negative: Sclera icteric ENT Exam: Positive: Atraumatic Neck Exam: Positive: Supple Chest Exam: Positive: Rhonchi Heart Exam: Positive: Rate Normal, Regular Rhythm Abdomen Exam: Positive: Normal bowel sounds, Soft; Negative: Tenderness Extremity Exam: Positive: Edema (Bilateral pitting edema up to the level of the knees) Neuro Exam: Positive: Normal Speech Psych Exam: Positive: Mental status NL, Mood NL Assessment /Plan Assessment This is a 56yo Male with no significant past medical history admitted here with COVID-19 ARDS requiring HFNC. 1. ARDS 2. COVID-19 3. Superimposed bacterial PNA 4. Bilateral lower extremity swelling Plan/VTE VTE Prophylaxis Ordered?: Yes Plan 1. Continue with Baricitnib (total 14 days), Remdesvir (total 5 days), and Decadrone (total 10 days). 2. HFNC/vapotherm 50% / 20 L/min support with intermittent CPAP therapy at night. When she get down to 10 L/min, we can potentially transition to high flow nasal cannula. 3. He is doing well with self proning. 4. Strict monitoring of I/O. Keep net 0. Lasix as needed. 5. Levaquin day 6 for superimposed bacterial PNA. Procalcitonin trending down. We can consider discontinuing antibiotic. 6. Transthoracic echocardiogram to evaluate RV function as I suspect he is deve loping cor pulmonale from ARDS and pulmonary fibrosis. Disposition Continue inpatient hospital care. VS, I&O, 24H, Fishbone Vital Signs/I&O Vital Signs Date Time Temp Pulse Resp B/P (MAP) Pulse Ox O2 Delivery O2 Flow Rate FiO2 05/19/21 09:00 94 HVNI-Vapotherm 20.0 50 05/19/21 08:00 98.0 78 18 94/58 (70) I&O- Last 24 Hours up to 6 AM 05/19/21 06:00 Intake Total 1880 ml Balance 1880 ml Laboratory Data Microbiology Microbiology 05/10/21 Blood Culture - Final, Complete NO GROWTH AFTER 5 DAYS 05/10/21 Blood Culture - Final, Complete Micrococcus Luteus AYE CARTER MD May 19, 2021 11:40
[2021-05-19 12:00] VITALS: BP 109/66
[2021-05-19 16:00] VITALS: BP 100/57
[2021-05-19 20:00] VITALS: BP 112/62
[2021-05-19] MEDS: PANTOPRAZOLE 40MG TAB (PROTONIX) PO SCH (21:45)
[2021-05-20] VITALS (7 sets, daily range): BP systolic 96–109; BP diastolic 56–68
--- NOTE | 2021-05-20 00:06 | ECHO ---
ECHOCARDIOGRAM DATE OF PROCEDURE: 05/19/2021 Age: 56 Gender: Male Height: 165 cm Weight: 104 kg REFERRING PHYSICIAN: Dr. Clifton Atkinson INDICATION: ARDS, COVID-19 MEASUREMENTS: IVS 0.9 cm LV 5.1 cm LVPW 1.0 cm LA 4.4 cm Aorta 3.0 cm IVC 1.3 cm FINDINGS: This study is of acceptable technical quality corresponding to patient's body habitus, underlying sinus rhythm. Left ventricle is normal size and systolic function, estimated EF around 65 to 70%. No segmental wall motion abnormalities are appreciated. Right ventricle is also normal size and systolic function. Left atrium is mildly enlarged. Right atrium is normal size. Aortic, mitral, tricuspid and pulmonic valves were all reasonably well seen and appear grossly normal. No pericardial effusion is noted. Inferior vena cava is normal size and appropriately collapses with inspiration, indicative of normal central venous pressure. Aortic root is normal. Aortic arch and abdominal aorta were not well visualized. Doppler interrogation reveals competent aortic valve. There is trace mitral and trace tricuspid insufficiency. Calculated pulmonary artery pressure is within normal limits. Pulmonic valve is functionally competent as well. Mitral inflow pattern and tissue Doppler imaging of mitral annulus revealed normal diastolic dysfunction. CONCLUSIONS: 1. Study is of acceptable technical quality, underlying sinus rhythm. 2. Normal LV size, systolic and diastolic function. 3. No significant valvular disease. 4. Likely normal central venous pressure and normal pulmonary artery pressure. 5. Relatively unremarkable echocardiogram.
[2021-05-20] MEDS: SODIUM CHLORIDE 0.9% INJ 10 ML SYR IV SCH ×2 (06:12→17:02)
[2021-05-20 06:38] LABS: HEMATOCRIT 44.6 % (42.0-52.0); HEMOGLOBIN 15.3 g/dl (13.5-17.5); MEAN CORPUSCULAR HEMOGLOBIN 30.9 pg (27.0-33.0); MEAN CORPUSCULAR HGB CONC 34.3 g/dl (32.0-36.5); MEAN CORPUSCULAR VOLUME 90.1 fl (80.0-96.0); PLATELET COUNT, AUTOMATED 361 10^3/uL (150-450); RED BLOOD COUNT 4.95 10^6/uL (4.30-6.10); WHITE BLOOD COUNT 11.9 10^3/uL (4.0-10.0)
[2021-05-20 07:11] LABS: ALBUMIN 2.7 GM/DL (3.2-5.2); ALT/SGPT 25 U/L (12-78); BILIRUBIN,TOTAL 0.5 MG/DL (0.2-1.0); BLOOD UREA NITROGEN 20 MG/DL (7-18); CALCIUM LEVEL 8.4 MG/DL (8.5-10.1); CARBON DIOXIDE LEVEL 31 MEQ/L (21-32); CHLORIDE LEVEL 103 MEQ/L (98-107); CREATININE FOR GFR 0.81 MG/DL (0.70-1.30); GLOMERULAR FILTRATION RATE > 60.0 (>56); GLUCOSE, FASTING 105 MG/DL (70-100); MAGNESIUM LEVEL 2.5 MG/DL (1.8-2.4); POTASSIUM SERUM 4.1 MEQ/L (3.5-5.1); SODIUM LEVEL 139 MEQ/L (136-145); TOTAL PROTEIN 5.7 GM/DL (6.4-8.2)
[2021-05-20] MEDS: ASPIRIN 81MG ENTERIC TABLET PO SCH (08:34)
[2021-05-20] MEDS: ENOXAPARIN 40MG/0.4ML SYRINGE (J1650 PER 10MG) SC SCH ×2 (08:34→21:02)
[2021-05-20] MEDS: BARICITINIB 2MG TABLET (OLUMIANT) FOR EUA PO SCH (08:35)
[2021-05-20] MEDS: guaiFENesin ER 600 MG TAB PO SCH ×2 (08:35→21:01)
--- NOTE | 2021-05-20 10:32 | IPNPDOC ---
Subjective Date Seen The patient was seen on 05/20/21. Subjective Chief Complaint/HPI Patient was seen and examined. Patient has absolutely no complaints today. He denies of fever, chills, shortness of breath, cough, chest pain. General: Denies: Chills Constitutional: Denies: Fever, Malaise Skin: Denies: Rash Pulmonary: Denies: Dyspnea, Cough Cardiovascular: Denies: Chest Pain, Orthopnea Gastrointestinal: Denies: Nausea, Abdominal Pain, Diarrhea Neurological: Denies: Weakness Objective Physical Examination General Exam: Positive: Alert, Cooperative Eye Exam: Negative: Sclera icteric ENT Exam: Positive: Atraumatic Neck Exam: Positive: Supple Chest Exam: Positive: Clear to auscultation Heart Exam: Positive: Rate Normal, Regular Rhythm Abdomen Exam: Positive: Normal bowel sounds, Soft; Negative: Tenderness Extremity Exam: Positive: Edema (Bilateral pitting edema up to the level of the knees) Neuro Exam: Positive: Normal Speech Psych Exam: Positive: Mental status NL, Mood NL Assessment /Plan Assessment This is a 56yo Male with no significant past medical history admitted here with COVID-19 ARDS requiring HFNC. 1. ARDS 2. COVID-19 3. Superimposed bacterial PNA 4. Bilateral lower extremity swelling Plan/VTE VTE Prophylaxis Ordered?: Yes Plan 1. Continue with Baricitnib (total 14 days), Remdesvir (total 5 days), and De cadrone (total 10 days). He completed a short course of antibiotic 2. HFNC/vapotherm at 30% / 15 L/min. We can potentially transition to regular high flow nasal cannula. I do anticipate he may end up going home with some oxygen. 3. He is doing well with self proning. 4. Strict monitoring of I/O. Keep net 0. Lasix as needed. 5. Transthoracic echocardiogram with no evidence of RV dysfunction. 6. Patient is relatively stable at this point. Pulmonary will sign off. Please reconsult should there be a need of pulmonary input. Disposition Continue hospital care VS, I&O, 24H, Fishbone Vital Signs/I&O Vital Signs Date Time Temp Pulse Resp B/P (MAP) Pulse Ox O2 Delivery O2 Flow Rate FiO2 05/20/21 08:30 HVNI-Vapotherm 12.0 35 05/20/21 08:05 97.1 73 22 103/68 (80) 92 I&O- Last 24 Hours up to 6 AM 05/20/21 06:00 Intake Total 1320 ml Output Total 0 ml Balance 1320 ml Laboratory Data 24H LABS Laboratory Tests 2 05/20/21 06:19: Nucleated Red Blood Cells % (auto) 0.0, Anion Gap 5L, Glomerular Filtration Rate > 60.0, Calcium Level 8.4#L, Magnesium Level 2.5H, Total Bilirubin 0.5, Aspartate Amino Transf (AST/SGOT) 13, Alanine Aminotransferase (ALT/SGPT) 25, Alkaline Phosphatase 27L, Total Protein 5.7#L, Albumin 2.7#L, Albumin/Globulin Ratio 0.9 CBC/BMP Laboratory Tests 05/20/21 06:19 Microbiology Microbiology 05/10/21 Blood Culture - Final, Complete NO GROWTH AFTER 5 DAYS 05/10/21 Blood Culture - Final, Complete Micrococcus Luteus AYE CARTER MD May 20, 2021 10:32
--- NOTE | 2021-05-20 17:41 | IPNPDOC ---
Text Note Date of Service The patient was seen on 05/20/21. NOTE Subjective: Patient stated that he feels better. No fever or chills Objective: GENERAL APPEARANCE: NAD HEENT: no scleral icterus, no JVD, EOMI CARDIOVASCULAR: S1S2 LUNGS: Diminished lung sounds bilaterally ABDOMEN: soft & not tender w palpation MUSCULOSKELETAL: no cyanosis, +1 legs swelling INTEGUMENT: no generalized pallor NEUROLOGICAL: cranial nerve function from 2-12 intact, follows commands, speech not dysarthric Assessment and plan Patient is 56 years old male who was admitted with Covid positive pneumonia. Acute hypoxemic respiratory failure/ARDS Continue with Baricitnib Continue Vapotherm Prone position I's and O's COVID-19 pneumonia Superimposed with bacterial pneumonia Patient completed course of antibiotic therapy Leg swelling We will check BNP VS,Fishbone, I+O VS, Fishbone, I+O Laboratory Tests 05/20/21 06:19 Vital Signs Date Time Temp Pulse Resp B/P (MAP) Pulse Ox O2 Delivery O2 Flow Rate FiO2 05/20/21 16:00 97.3 80 20 105/65 (78) 91 HVNI-Vapotherm 18.0 35 I&O- Last 24 Hours up to 6 AM 05/20/21 06:00 Intake Total 1320 ml Output Total 0 ml Balance 1320 ml FAWAD LOPEZ DO May 20, 2021 17:41
[2021-05-20] MEDS: PANTOPRAZOLE 40MG TAB (PROTONIX) PO SCH (21:01)
[2021-05-21] VITALS (7 sets, daily range): BP systolic 98–117; BP diastolic 61–69; O2SAT 95
[2021-05-21] MEDS: SODIUM CHLORIDE 0.9% INJ 10 ML SYR IV SCH ×2 (04:52→18:19)
[2021-05-21 05:51] LABS: HEMATOCRIT 42.6 % (42.0-52.0); HEMOGLOBIN 14.4 g/dl (13.5-17.5); MEAN CORPUSCULAR HEMOGLOBIN 30.8 pg (27.0-33.0); MEAN CORPUSCULAR HGB CONC 33.8 g/dl (32.0-36.5); PLATELET COUNT, AUTOMATED 317 10^3/uL (150-450); RED BLOOD COUNT 4.68 10^6/uL (4.30-6.10); WHITE BLOOD COUNT 9.9 10^3/uL (4.0-10.0)
[2021-05-21 06:23] LABS: ALBUMIN 2.5 GM/DL (3.2-5.2); ALT/SGPT 26 U/L (12-78); BILIRUBIN,TOTAL 0.7 MG/DL (0.2-1.0); BLOOD UREA NITROGEN 21 MG/DL (7-18); CALCIUM LEVEL 7.8 MG/DL (8.5-10.1); CARBON DIOXIDE LEVEL 30 MEQ/L (21-32); CHLORIDE LEVEL 106 MEQ/L (98-107); CREATININE FOR GFR 0.89 MG/DL (0.70-1.30); GLOMERULAR FILTRATION RATE > 60.0 (>56); GLUCOSE, FASTING 90 MG/DL (70-100); MAGNESIUM LEVEL 2.2 MG/DL (1.8-2.4); POTASSIUM SERUM 4.1 MEQ/L (3.5-5.1); SODIUM LEVEL 141 MEQ/L (136-145); TOTAL PROTEIN 5.3 GM/DL (6.4-8.2)
[2021-05-21] MEDS: ASPIRIN 81MG ENTERIC TABLET PO SCH (08:42)
[2021-05-21] MEDS: guaiFENesin ER 600 MG TAB PO SCH ×2 (08:43→21:09)
[2021-05-21] MEDS: BARICITINIB 2MG TABLET (OLUMIANT) FOR EUA PO SCH (08:43)
[2021-05-21] MEDS: ENOXAPARIN 40MG/0.4ML SYRINGE (J1650 PER 10MG) SC SCH ×2 (08:44→21:10)
--- NOTE | 2021-05-21 16:23 | IPNPDOC ---
Text Note Date of Service The patient was seen on 05/21/21. NOTE Subjective: Patient's breathing markedly improved, currently he is on room air. No fever or chills Objective: GENERAL APPEARANCE: NAD HEENT: no scleral icterus, no JVD, EOMI CARDIOVASCULAR: S1S2 LUNGS: Diminished lung sounds bilaterally ABDOMEN: soft & not tender w palpation MUSCULOSKELETAL: no cyanosis, +1 legs swelling INTEGUMENT: no generalized pallor NEUROLOGICAL: cranial nerve function from 2-12 intact, follows commands, speech not dysarthric Assessment and plan Patient is 56 years old male who was admitted with Covid positive pneumonia. Acute hypoxemic respiratory failure/ARDS Continue with Baricitnib Prone position I's and O's Acute hypoxemic respiratory failure resolved today. Most likely patient will be discharged tomorrow COVID-19 pneumonia Superimposed with bacterial pneumonia Patient completed course of antibiotic therapy Leg swelling BNP within normal limit Most likely secondary lymphedema PT/OT VS,Fishbone, I+O VS, Fishbone, I+O Laboratory Tests 05/21/21 04:59 Vital Signs Date Time Temp Pulse Resp B/P (MAP) Pulse Ox O2 Delivery O2 Flow Rate FiO2 05/21/21 15:08 91 Room Air 05/21/21 12:00 2.0 05/21/21 12:00 97.6 69 20 102/63 (76) 05/21/21 08:09 35 I&O- Last 24 Hours up to 6 AM 05/21/21 06:00 Intake Total 1140 ml Output Total 675 ml Balance 465 ml FAWAD LOPEZ DO May 21, 2021 16:23
[2021-05-21] MEDS: PANTOPRAZOLE 40MG TAB (PROTONIX) PO SCH (21:09)
[2021-05-22] MEDS: SODIUM CHLORIDE 0.9% INJ 10 ML SYR IV SCH (05:10)
[2021-05-22 05:31] LABS: HEMATOCRIT 42.8 % (42.0-52.0); HEMOGLOBIN 14.7 g/dl (13.5-17.5); MEAN CORPUSCULAR HEMOGLOBIN 31.5 pg (27.0-33.0); MEAN CORPUSCULAR HGB CONC 34.3 g/dl (32.0-36.5); MEAN CORPUSCULAR VOLUME 91.8 fl (80.0-96.0); PLATELET COUNT, AUTOMATED 325 10^3/uL (150-450); RED BLOOD COUNT 4.66 10^6/uL (4.30-6.10)
[2021-05-22 05:50] LABS: ALBUMIN 2.6 GM/DL (3.2-5.2); ALT/SGPT 29 U/L (12-78); BILIRUBIN,TOTAL 0.5 MG/DL (0.2-1.0); BLOOD UREA NITROGEN 19 MG/DL (7-18); CALCIUM LEVEL 8.2 MG/DL (8.5-10.1); CARBON DIOXIDE LEVEL 31 MEQ/L (21-32); CHLORIDE LEVEL 106 MEQ/L (98-107); CREATININE FOR GFR 0.87 MG/DL (0.70-1.30); GLOMERULAR FILTRATION RATE > 60.0 (>56); GLUCOSE, FASTING 98 MG/DL (70-100); MAGNESIUM LEVEL 2.3 MG/DL (1.8-2.4); POTASSIUM SERUM 4.1 MEQ/L (3.5-5.1); SODIUM LEVEL 142 MEQ/L (136-145); TOTAL PROTEIN 5.4 GM/DL (6.4-8.2)
[2021-05-22 06:00] VITALS: BP 119/76
[2021-05-22] MEDS: ENOXAPARIN 40MG/0.4ML SYRINGE (J1650 PER 10MG) SC SCH (09:04)
[2021-05-22] MEDS: BARICITINIB 2MG TABLET (OLUMIANT) FOR EUA PO SCH (09:04)
[2021-05-22] MEDS: ASPIRIN 81MG ENTERIC TABLET PO SCH (09:04)
[2021-05-22] MEDS: guaiFENesin ER 600 MG TAB PO SCH (09:05)
[2021-05-22] MEDS ORDERED: VENTAER INH (11:28)
--- NOTE | 2021-05-22 19:23 | DS.PDOC ---
Discharge Summary General Date of Admission May 10, 2021 at 11:14 Date of Discharge 05/22/21 Discharge Summary PROCEDURES PERFORMED DURING STAY: [None]. ADMITTING DIAGNOSES: Acute hypoxemic respiratory failure/ARDS COVID-19 pneumonia Leg swelling DISCHARGE DIAGNOSES: Acute hypoxemic respiratory failure/ARDS COVID-19 pneumonia Leg swelling COMPLICATIONS/CHIEF COMPLAINT: Acute Resp Failure With Hypoxia,Pneumonia Due To C. HISTORY OF PRESENT ILLNESS: Mr. Herring is a 56 year old COVID positive male from [place] who presented with confusion and dyspnea. He was feeling well in [place] and did not get the COVID vaccine by choice. Daughter says that he is more into homeopathic treatments such as acupuncture. His was not feeling well and was having diarrhea. She had tested negative for COVID, so he had planned to visit his . He arrived in [place] on May 03, and that was when he started to have chills. He thought it was just the chill from the airport and did not think much of it. He and his stayed at home since they were not feeling well. He had came to the ED on evening of May 09 where he was doing well at room air and did not meet admission. Instead he was given Casirivimab and Imdevimab early hours of May 10. He went home afterwards, but noted that he was not acting himself. He was coughing and being incoherent. He returned to the ED and was found to be hypoxic in the 70s. and tachycardic. He was put on Vapotherm. Patient reported that he had chills and intermittent abdominal pain and nausea. His appetite has been poor. Patient will be admitted for acute hypoxic respiratory failure and COVID pneumonia. HOSPITAL COURSE: During the hospital stay the following issue addressed Acute hypoxemic respiratory failure/ARDS Patient received treatment with Baricitnib, remdesivir and Decadron with positive effect COVID-19 pneumonia Superimposed with bacterial pneumonia Patient completed course of antibiotic therapy Leg swelling BNP within normal limit Most likely secondary lymphedema PT/OT DISCHARGE MEDICATIONS: Please see below. ALLERGIES: Please see below. PHYSICAL EXAMINATION ON DISCHARGE: VITAL SIGNS: Please see below. GENERAL APPEARANCE: NAD HEENT: no scleral icterus, no JVD, EOMI CARDIOVASCULAR: S1S2 LUNGS: Diminished lung sounds bilaterally ABDOMEN: soft & not tender w palpation MUSCULOSKELETAL: no cyanosis, +1 legs swelling INTEGUMENT: no generalized pallor NEUROLOGICAL: cranial nerve function from 2-12 intact, follows commands, speech not dysarthric LABORATORY DATA: Please see below. PROGNOSIS: Fair ACTIVITY: [As tolerated]. DIET: Regular DISPOSITION: 01 Home, Self-Care. ITEMS TO FOLLOWUP ON ON OUTPATIENT: Follow-up with PCP DISCHARGE CONDITION: [Stable]. TIME SPENT ON DISCHARGE: 40 minutes. Vital Signs/I&Os Vital Signs Date Time Temp Pulse Resp B/P (MAP) Pulse Ox O2 Delivery O2 Flow Rate FiO2 05/22/21 06:00 98.4 77 20 119/76 (90) 93 Room Air 05/21/21 22:40 2.0 05/21/21 08:09 35 I&O- Last 24 Hours up to 6 AM 05/22/21 06:00 Intake Total 1560 ml Output Total 1575 ml Balance -15 ml Laboratory Data Labs 24H Laboratory Tests 2 05/22/21 05:09: Nucleated Red Blood Cells % (auto) 0.0, Anion Gap 5L, Glomerular Filtration Rate > 60.0, Calcium Level 8.2L, Magnesium Level 2.3, Total Bilirubin 0.5, Aspartate Amino Transf (AST/SGOT) 14, Alanine Aminotransferase (ALT/SGPT) 29, Alkaline Phosphatase 28L, Total Protein 5.4L, Albumin 2.6L, Albumin/Globulin Ratio 0.9 CBC/BMP Laboratory Tests 05/22/21 05:09 Discharge Medications Scheduled PRN Albuterol Sulfate (Ventolin Hfa) 18 Gm Hfa.aer.ad, 2 PUFF INH Q6HP PRN for SHORTNESS OF BREATH Allergies Coded Allergies: Penicillins (Unverified Allergy, Intermediate, SWOLLEN AND RED, 05/10/21) FAWAD LOPEZ DO May 22, 2021 19:23
== END 2021-05-22 15:24 | disposition home health service (06) | DRG 137 ==
LOC: M ED 08:55 → EEVIPCON 11:14 → M ED INP 11:14 → ENRESERV 14:48 → M ICU 16:21 → M 4MAIN 05-18 14:14
PROVIDERS: ADMIT Internal Medicine; ATTEND Internal Medicine
PROC: 02HV33Z Insertion of Infusion Device into Superior Vena Cava, Percutaneous Approach (ICD-10-PCS; principal; 2021-05-16 16:30)
DX: U07.1 COVID-19 (principal); J96.01 Acute respiratory failure with hypoxia; J12.82 Pneumonia due to coronavirus disease 2019; Z88.0 Allergy status to penicillin

== ENCOUNTER 2021-05-30 17:16 | Inpatient (IN) | payer BC ==
[~2021-05-30] VITALS: Ht 165.1 cm; Wt 98.5 kg
[~2021-05-30 17:16] MED LIST: VENTAER INH
[2021-05-30] MEDS ORDERED: ACETAMINOPHEN TAB 650MG DOSE (2X325MG) PO ONE (17:55)
[2021-05-30 17:58] LABS: VENOUS BASE EXCESS 1.1 (-2.0-2.0); VENOUS HCO3 24.7 MEQ/L (23.0-27.0); VENOUS O2 SATURATION 93.9 % (60.0-80.0); VENOUS PARTIAL PRESSURE CO2 36.4 mmHg (38.0-50.0); VENOUS PARTIAL PRESSURE O2 64.4 mmHg (30.0-50.0); VENOUS PH 7.449 UNITS (7.330-7.430); VENOUS STANDARD HCO3 25.3 MEQ/L; VENOUS TOTAL CO2 25.8 MEQ/L (24.0-28.0)
[2021-05-30 18:05] LABS: BASO % 0.2 % (0.0-1.0); EOS # 0.2 10^3/uL (0.0-0.5); EOS % 2.6 % (0.0-3.0); HEMATOCRIT 45.7 % (42.0-52.0); HEMOGLOBIN 15.8 g/dl (13.5-17.5); LYMPH # 1.2 10^3/uL (1.5-5.0); LYMPH % 13.4 % (24.0-44.0); MEAN CORPUSCULAR HEMOGLOBIN 31.1 pg (27.0-33.0); MEAN CORPUSCULAR HGB CONC 34.6 g/dl (32.0-36.5); MONO # 0.7 10^3/uL (0.0-0.8); MONO % 8.2 % (2.0-8.0); NEUTROPHILS # 6.6 10^3/uL (1.5-8.5); NEUTROPHILS % 75.1 % (36.0-66.0); PLATELET COUNT, AUTOMATED 187 10^3/uL (150-450); RED BLOOD COUNT 5.08 10^6/uL (4.30-6.10); WHITE BLOOD COUNT 8.8 10^3/uL (4.0-10.0)
--- NOTE | 2021-05-30 18:11 | REP ---
INDICATION: DYSPNEA/COUGH COMPARISON: 05/10/2021 TECHNIQUE: Portable AP view of the chest FINDINGS: Evaluation is limited by poor inspiratory effort and underpenetration. Diffuse bilateral infiltrates are again suspected and similar to prior examination. Effusions cannot be excluded. No obvious pneumothorax. IMPRESSION: Findings suggest significant bilateral pulmonary infiltrates. COVID related pulmonary disease cannot be excluded. <Electronically signed by Axel Dale > 05/30/21 [id number]
[2021-05-30 18:40] LABS: ALT/SGPT 34 U/L (12-78); BILIRUBIN,DIRECT 0.2 MG/DL (0.0-0.2); BILIRUBIN,TOTAL 0.6 MG/DL (0.2-1.0); CK-MB VALUE MASS < 1.0 NG/ML (<3.6); CPK CREATINE PHOSPHOKINASE 48 U/L (39-308); FERRITIN 465 NG/ML (26-388); LDH LACTATE DEHYDROGENASE 246 U/L (87-241); MB/CK RELATIVE INDEX 2.08 (< OR =4); NT-PRO BNP 50 PG/ML (<125); THYROXINE (T4) 9.8 UG/DL (4.5-12.0); TROPONIN I < 0.02 NG/ML (< 0.10)
[2021-05-30 18:51] LABS: D-DIMER QUANT 2609.63 ng/ml (<500)
[2021-05-30] MEDS ORDERED: ALBU8.5H INH (19:08)
[2021-05-30] MEDS ORDERED: EX-L15TA PO (19:10)
[2021-05-30] MEDS ORDERED: HOME MED LIST COMPLETE! XX SCH (19:15)
--- NOTE | 2021-05-30 19:34 | ECGEPIP ---
[facility] - ED Test Date: 2021-05-30 Pat Name: IVAN CHAVIRA Department: Room: - Gender: Male Cargo Mate: JAMILAH : 1965 Requested By: YAJAIRA HERNÁNDEZ Order Number: [id number] Reading MD: Andrew Yuan Measurements Intervals [place] Rate: 130 P: 19 OR: 142 QRS: -4 QRSD: 80 T: -2 QT: 298 QTc: 438 Interpretive Statements Sinus tachycardia Delayed R wave progression Nonspecific ST T wave changes cw 05/14/[address] T wave changes Electronically Signed on 05-30-2021 19:34:27 EDT by Andrew Yuan
[2021-05-30] MEDS ORDERED: ISOVUE-370 76% 100ML VIAL As Ordered ONE (20:09)
[2021-05-30] MEDS ORDERED: VANCOMYCIN HCL IV ONE (21:05)
[2021-05-30] MEDS ORDERED: MAALOX 30 ML SUSP *UDC PO PRN (21:05)
[2021-05-30] MEDS ORDERED: FLUID PLACE HOLDER IV ONE (21:05)
[2021-05-30] MEDS ORDERED: MOM 30ML SUSPENSION UDC PO PRN (21:05)
[2021-05-30] MEDS ORDERED: SODIUM CHLORIDE 0.9% 1000ML IV STA (21:14)
--- NOTE | 2021-05-30 21:15 | HPEPDOC ---
[facility] Medical History & Physical Date of Admission May 30, 2021 Date of Service: May 30, 2021 Other Provider No PCP listed Attending Physician: AL RODRÍGUEZ MD History and Physical TIME OF SERVICE: 956pm CHIEF COMPLAINT: shortness of breath SOURCE: The patients God daughter / niece & Chart review HISTORY OF PRESENT ILLNESS: Mr.Guevara nur 56 yr old M moved to the area from [place] on May 03, the same day he begun to fell unwell. Shortly there-after was diagnosed with COVID 19 and admitted to our facility from May 10 to May 22 for acute hypoxemic respiratory failure/ARDS & COVID-19 pneumonia. He was sent home with nocturnal O2 and albuterol. The patient has been using his O2 and pronging while lying down at home; unfortunately he begun to feel unwell again yesterday afternoon and was c/o constipation and shortness of breath. Today his family noticed that he was warm; when they checked his vitals they noted that his O2 sats were 88-89% with a HR of 124 so they brought him to the ER where he was found to have a T of 102.1 According to his god-daughter no one else at home is feeling unwell. REVIEW OF SYSTEMS: 10-point review of systems negative except as listed in HPI PAST MEDICAL/ SURGICAL HISTORY: recently diagnosed AFSANEH, recent COVID-19 infection, class 2 obesity SOCIAL HISTORY: He is , doesnt smoke, drinks alcohol socially and doesnt use recreational drugs. FAMILY HISTORY: reviewed w niece no FMH ALLERGIES: Please see below. HOME MEDICATIONS: Please see below. PHYSICAL EXAMINATION: Vital Signs Date Time Temp Pulse Resp B/P (MAP) Pulse Ox O2 Delivery O2 Flow Rate FiO2 05/30/21 17:17 102.1 139 20 117/67 (84) 95 Nasal Cannula 2.0 GENERAL APPEARANCE: well-nourished and developed/ NAD HEENT: EOMI / MMM&P/ NC in lace CARDIOVASCULAR: tachycardic/NMRG LUNGS: coughing / equal air entry bilaterally / CTAB ABDOMEN: contour obese MUSCULOSKELETAL: NCAT / JOHANNY x 4 extremities INTEGUMENT: flushed and diaphoretic NEUROLOGICAL: CN 2-12 grossly intact / speech not dysarthric PSYCHIATRIC: A&O / able to understand and follow all commands LABORATORY DATA: IMAGING: Chest xray IMPRESSION: Findings suggest significant bilateral pulmonary infiltrates.COVID related pulmonary disease cannot be excluded. CTA chest IMPRESSION: 1. Bilateral semi-solid and solid pulmonary parenchymal infiltrates consistent with multifocal pneumonitis. 2. There is no aortic dissection or aneurysm. 3. There are no pulmonary emboli. MICROBIOLOGY: Respiratory panel neg / blood cx pending ASSESSMENT: is a 56 yr old w AFSANEH & recent COVID infection who is admitted for Sepsis possibly 2/2 post viral PNA. PLAN: 1 Sepsis Possibly due to post-viral PNA or other occult infection He has the following SIRS criteria: Temp 102.1 / HR 139 / RR 24 His NEWS2 Score is 12 points which puts him in the high risk category His qSOFA score is 2 which also puts him in the high risk category Plan: admit to PCU / telemetry / IVF /f/u blood cx, UA w culture and sputum culture / Acetaminophen PRN for fever / target MAP at of least 65 to 70 / f/u Is and Os with target UOP of at least 0.5 ml/kg/H / f/u FSBS w target serum glucose 140-180 while acutely ill 2 Post-viral PNA / HAP vs Post-COVID Pneumonitis His PORT/PSI Score to predict risk of mortality in patient w CAP puts him in the Risk Class III category. Therefore in patient treatment is appropriate. His ROSIO index for intubation after HFNC to predict the need for intubation is 17.46 points which indicates that he is at low risk of progressing to intubation. His Shorr Score to identify pts at risk for MRSA PNA is 3 points, which puts him in the intermediate risk category, therefore it is reasonable to start Vanc pending MRSA results. Despite the elevated d-dimer the CTA is neg for PE Plan: continuous pulse ox & supplemental O2/ Levofloxacin and Vancomycin pending sputum culture, strep pneumo, legionella, mycoplasma, chlamydia & MRSA / the day time team may consider consulting Pulm to confirm whether this is truly post-vir al PNA or some other post-COVID syndrome 3 Constipation Plan: f/u KUB 4 AFSANEH Plan: needs referral for formal sleep study DVT px w Lovenox Dispo: home after at least 2 midnights stay His LACE Index Score is 12 points which indicates that he is at high risk for re-admission or within the next 30 days. A PFS consult has been placed for discharge planning (based on current record in [facility] he doesn't appear to have a PCP). Home Medications Scheduled Sennosides (Ex-Lax) 15 Mg Tablet, 15 MG PO DAILY Scheduled PRN Albuterol Sulfate (Albuterol Sulfate Hfa) 8.5 Gm Hfa.aer.ad, 2 PUFFS INH Q6H PRN for SHORTNESS OF BREATH Allergies Coded Allergies: Penicillins (Unverified Allergy, Intermediate, SWOLLEN AND RED, 05/10/21) A-FIB/CHADSVASC A-FIB History Current/History of A-Fib/PAF?: No Current PO Anticoag Therapy: No AL RODRÍGUEZ MD May 30, 2021 21:14
--- NOTE | 2021-05-30 21:19 | REPVR ---
PROCEDURE INFORMATION: Exam: CTA Chest With Contrast Exam date and time: 05/30/2021 8:50 PM Age: 56 years old Clinical indication: Dyspnea TECHNIQUE: Imaging protocol: Computed tomographic angiography of the chest with contrast. 3D rendering (Not supervised by radiologist): MIP and/or 3D reconstructed images were created by the technologist. Radiation optimization: All CT scans at this facility use at least one of these dose optimization techniques: automated exposure control; mA and/or kV adjustment per patient size (includes targeted exams where dose is matched to clinical indication); or iterative reconstruction. Contrast material: ISOVUE 370; Contrast volume: 75 ml; Contrast route: INTRAVENOUS (IV); COMPARISON: CT ANGIO CHEST 05/10/2021 12:47 AM FINDINGS: Pulmonary arteries: There are no pulmonary emboli. Aorta: There is no aortic dissection or aneurysm. Lungs: Extensive bilateral semi-solid and solid pulmonary parenchymal infiltrates consistent with multifocal pneumonitis. Suboptimal inspiratory effort. Pleural spaces: Unremarkable. No pneumothorax. No pleural effusion. Heart: Unremarkable. No cardiomegaly. No pericardial effusion. Lymph nodes: Unremarkable. No enlarged lymph nodes. Bones/joints: The spine demonstrates mild degenerative changes. Soft tissues: Unremarkable. IMPRESSION: 1. Bilateral semi-solid and solid pulmonary parenchymal infiltrates consistent with multifocal pneumonitis. 2. There is no aortic dissection or aneurysm. 3. There are no pulmonary emboli. Electronically signed by: Jose Fox On 05/30/2021 21:19:07 PM
[2021-05-30] MEDS ORDERED: VANCOMYCIN HCL 1,000 MG, VIAL MATE ADAPTER 1 EACH in NS 250 ML IV ONE ×2 (22:00→23:00)
[2021-05-30 22:10] VITALS: BP 138/77
[2021-05-31] MEDS ORDERED: VANCOMYCIN HCL 500 MG in D5W MINI-BAG PLUS 100 ML IV ONE ×2
[2021-05-31 00:08] LABS: RSV AMPLIFICATION NEGATIVE (NEGATIVE)
[2021-05-31 02:20] VITALS: BP 145/76
[2021-05-31 04:00] VITALS: BP 147/86
[2021-05-31] MEDS ORDERED: LR 1,000 ML IV SCH (04:15)
[2021-05-31] MEDS: ACETAMINOPHEN TAB 650MG DOSE (2X325MG) PO PRN ×2 (04:23→15:24)
[2021-05-31] MEDS: LevoFLOXacin IV 750 MG in IV 1 EA IV SCH (05:17)
[2021-05-31 05:45] LABS: HEMATOCRIT 40.6 % (42.0-52.0); MEAN CORPUSCULAR HEMOGLOBIN 31.3 pg (27.0-33.0); MEAN CORPUSCULAR HGB CONC 34.5 g/dl (32.0-36.5); MEAN CORPUSCULAR VOLUME 90.8 fl (80.0-96.0); PLATELET COUNT, AUTOMATED 153 10^3/uL (150-450); RED BLOOD COUNT 4.47 10^6/uL (4.30-6.10); WHITE BLOOD COUNT 7.3 10^3/uL (4.0-10.0)
[2021-05-31 06:16] LABS: BLOOD UREA NITROGEN 4 MG/DL (7-18); CALCIUM LEVEL 7.4 MG/DL (8.5-10.1); CARBON DIOXIDE LEVEL 28 MEQ/L (21-32); CHLORIDE LEVEL 109 MEQ/L (98-107); CREATININE FOR GFR 0.67 MG/DL (0.70-1.30); GLOMERULAR FILTRATION RATE > 60.0 (>56); GLUCOSE, FASTING 118 MG/DL (70-100); POTASSIUM SERUM 3.6 MEQ/L (3.5-5.1); SODIUM LEVEL 142 MEQ/L (136-145)
[2021-05-31 06:33] LABS: APPEARANCE, URINE CLEAR (CLEAR); BACTERIA, URINE AUTO NEGATIVE (NEGATIVE); BILIRUBIN, URINE AUTO NEGATIVE (NEGATIVE); BLOOD, URINE BLOOD NEGATIVE (NEGATIVE); COLOR, URINE YELLOW (YELLOW); GLUCOSE, URINE (UA) AUTO NEGATIVE (NEGATIVE); KETONE, URINE AUTO NEGATIVE (NEGATIVE); LEUKOCYTE ESTERASE, URINE AUTO NEGATIVE (NEGATIVE); MUCUS, URINE SMALL (NEGATIVE); NITRITE, URINE AUTO NEGATIVE (NEGATIVE); PROTEIN, URINE AUTO NEGATIVE (NEGATIVE); RBC, URINE AUTO 1 /HPF (0-3); SPECIFIC GRAVITY URINE AUTO 1.046 (1.002-1.035); SQUAMOUS EPITHELIAL CELL UR AU 0 /HPF (0-6); UROBILINOGEN, URINE AUTO 0.2 mg/dL (0.0-2.0); WBC, URINE AUTO 0 /HPF (0-3)
[2021-05-31 08:00] VITALS: BP 113/66
--- NOTE | 2021-05-31 08:44 | REP ---
INDICATION: constipation COMPARISON: None. TECHNIQUE: Portable supine view of the abdomen and pelvis. FINDINGS: Bowel gas pattern is relatively nonspecific although underlying ascites cannot be excluded. No obvious organomegaly. No obvious foreign body or abnormal calcifications. Skeletal structures appear age-appropriate. IMPRESSION: Nonspecific bowel gas pattern. Cannot exclude ascites. <Electronically signed by Axel Dale > 05/31/21 0811
[2021-05-31] MEDS ORDERED: predniSONE 20 MG TAB PO SCH (09:00)
[2021-05-31] MEDS: ENOXAPARIN 40MG/0.4ML SYRINGE (J1650 PER 10MG) SC SCH (10:18)
[2021-05-31] MEDS ORDERED: GLUCAGON INJ 1MG VIAL SC PRN (13:20)
[2021-05-31] MEDS ORDERED: GLUCOSE 4GM CHEW TABLET PO PRN (13:20)
[2021-05-31] MEDS ORDERED: DEXTROSE 50% 50 ML SYRINGE IV PRN (13:20)
--- NOTE | 2021-05-31 14:11 | IPNPDOC ---
Text Note Date of Service The patient was seen on 05/31/21. NOTE SUBJECTIVE: -On 2L with hoarse voice and dry cough -Namibian speaking mostly, put his family on video and I updated them that I think he has post-viral pneumonitis more likely vs. possible bacterial PNA that I think is less likely given the clinical picture. OBJECTIVE: GENERAL APPEARANCE: well-nourished and developed, NAD HEENT: EOMI, MMM&P, NC in place CARDIOVASCULAR: tachycardic, sinus, no m/r/g LUNGS:Dry cough, CTAB, no wheezing, dry scattered velcro L>R rare crackles ABDOMEN: contour obese, NTND NEUROLOGICAL: CN 3-12 grossly intact, speech not dysarthric PSYCHIATRIC: AOx3 LABORATORY DATA: Reviewed WBC 7.3 hgb 14 IMAGING: Chest xray IMPRESSION: Findings suggest significant bilateral pulmonary infiltrates.COVID related pulmonary disease cannot be excluded. CTA chest IMPRESSION: 1. Bilateral semi-solid and solid pulmonary parenchymal infiltrates consistent with multifocal pneumonitis. 2. There is no aortic dissection or aneurysm. 3. There are no pulmonary emboli. MICROBIOLOGY: Respiratory panel neg / blood cx pending ASSESSMENT: 56 yr old w AFSANEH & recent COVID infection, was was admitted with what was suspected to be sepsis but behaving more like inflammatory post viral pneumonitis vs. less likely bacterial PNA. PLAN: +SIRS: Temp >101 / HR >90 / RR > 20 -s/p IVF -f/u blood cx -UA bland -f/u sputum culture, urine legionella and strep antigens -Acetaminophen PRN for fever Suspicion of post viral pneumonitis: -will actually give solumedrol 125 now with plan to start on prednisone 40mg tomorrow -supplemental O2 Suspecetd post-viral PNA -continue levaquin for now -f/u procalcitonin, if it is negative, I would stop abx -f/u SCx, urine legionella and strep antigens -supplemental O2 3 Constipation - miralax BID 4 AFSANEH -needs PCP referral for formal sleep study, for now on O2 DVT px w Lovenox Dispo: home after at least 2 midnights stay VS,Fishbone, I+O VS, Fishbone, I+O Laboratory Tests 05/30/21 17:52 05/31/21 05:23 Vital Signs Date Time Temp Pulse Resp B/P (MAP) Pulse Ox O2 Delivery O2 Flow Rate FiO2 05/31/21 08:00 2.0 05/31/21 08:00 98.1 115 21 113/66 (82) 95 Nasal Cannula I&O- Last 24 Hours up to 6 AM 05/31/21 06:00 Intake Total 650 ml Output Total 1325 ml Balance -675 ml KAYLIE PERALES MD May 31, 2021 14:11
[2021-05-31] MEDS ORDERED: methylPREDNISolone 125MG 2ML VIAL IV ONE (15:00)
[2021-05-31] MEDS: MIRALAX *UNIT DOSE* 17GM PACKET PO SCH ×2 (15:15→21:00)
[2021-05-31 16:00] VITALS: BP 131/70
[2021-05-31] MEDS ORDERED: HumaLOG INSULIN (NovoLOG) PER UNIT SC SCH ×2 (17:30→21:00)
[2021-05-31 20:00] VITALS: BP 131/60
[2021-06-01 04:00] VITALS: BP 118/71
[2021-06-01] MEDS: LevoFLOXacin IV 750 MG in IV 1 EA IV SCH (05:54)
[2021-06-01 08:00] VITALS: BP 115/68
[2021-06-01] MEDS: MIRALAX *UNIT DOSE* 17GM PACKET PO SCH ×2 (09:00→21:07)
[2021-06-01] MEDS: predniSONE 20 MG TAB PO SCH (09:54)
[2021-06-01] MEDS: ENOXAPARIN 40MG/0.4ML SYRINGE (J1650 PER 10MG) SC SCH (09:54)
[2021-06-01 16:00] VITALS: BP 118/63
--- NOTE | 2021-06-01 17:41 | IPNPDOC ---
Subjective Date Seen The patient was seen on 06/01/21. Subjective Chief Complaint/HPI Denies any SOB. Had fever with t max of 101.3 in the last 24 hours. Has some dry cough. Complains of some right sided localized chest discomfort when he coughs. Objective Physical Examination General Exam: Positive: Alert, Cooperative, No Acute Distress Eye Exam: Positive: PERRLA, Conjunctiva & lids normal, EOMI; Negative: Sclera icteric ENT Exam: Positive: Atraumatic, Mucous membr. moist/pink, Pharynx Normal Neck Exam: Positive: Supple; Negative: JVD, thyromegaly Chest Exam: Positive: Other (bilateral diffuse crackles); Negative: Rhonchi, Wheezing Heart Exam: Positive: Rate Normal, Regular Rhythm, Normal S1, Normal S2; Negative: Murmurs, Rubs Abdomen Exam: Positive: Normal bowel sounds, Soft; Negative: Tenderness Extremity Exam: Negative: Clubbing, Cyanosis, Edema Psych Exam: Positive: Memory Intact, Oriented x 3 Assessment /Plan Assessment 56 yr old male moved from [place] on May 03, the same day he begun to feel unwell. Shortly there-after was diagnosed with COVID 19 and admitted to our facility from May 10 to May 22 for acute hypoxemic respiratory failure/ARDS & COVID-19 pneumonia. He was sent home with nocturnal O2 and albuterol. Also has PMH of AFSANEH. Presented to the ED on 05/30/21 for Fever and cough and SOB was admitted for suspected sepsis possibly due to post viral bacterial pneumonia but behaving more like inflammatory post viral pneumonitis vs. less likely bacterial PNA. Post viral pneumonitis Vs Post viral bacterial pneumonia with SIRs/Sepsis continue Levaquin, prednisone f/u procalcitonin, if it is negative,will stop abx f/u urine legionella and strep antigens Sputum ws contaminated by oropharyngeal amor , was of poor quality so culture not performed. Continue supplemental O2, albuterol Chronic hypoxic respiratory failure s/p COVID pneumonia Now oxygen requirement is a little higher. Constipation miralax BID AFSANEH needs PCP referral for formal sleep study, for now on O2 Plan/VTE VTE Prophylaxis Ordered?: Yes VS, I&O, 24H, Fishbone Vital Signs/I&O Vital Signs Date Time Temp Pulse Resp B/P (MAP) Pulse Ox O2 Delivery O2 Flow Rate FiO2 06/01/21 04:00 98.0 91 20 118/71 (87 94 Nasal Cannula 2.0 I&O- Last 24 Hours up to 6 AM 06/01/21 06:00 Intake Total 1480 ml Output Total 1050 ml Balance 430 ml Laboratory Data Microbiology Microbiology 05/30/21 Gram Stain - Final, Complete 05/30/21 Sputum Culture - Final, Complete 05/30/21 Blood Culture - Preliminary, Resulted No growth after 24 hours . All specim... 05/30/21 Blood Culture - Preliminary, Resulted No growth after 24 hours . All specim... Daphney Dunlap MD Jun 01, 2021 08:12
[2021-06-01 20:00] VITALS: BP 122/65
[2021-06-01] MEDS: ALBUTEROL 90 MCG/ACT 8GM HFA INHALER INH SCH (20:18)
[2021-06-01] MEDS ORDERED: MORPHINE 4 MG/ML 1ML VIAL/SYRINGE (J2270) IV ONE (21:45)
[2021-06-02 04:00] VITALS: BP 102/61
[2021-06-02] MEDS: LevoFLOXacin IV 750 MG in IV 1 EA IV SCH (06:07)
[2021-06-02 08:00] VITALS: BP 106/64
[2021-06-02] MEDS: ALBUTEROL 90 MCG/ACT 8GM HFA INHALER INH SCH ×4 (08:25→20:22)
[2021-06-02] MEDS: MIRALAX *UNIT DOSE* 17GM PACKET PO SCH ×2 (09:00→21:38)
[2021-06-02] MEDS: ENOXAPARIN 40MG/0.4ML SYRINGE (J1650 PER 10MG) SC SCH (09:07)
[2021-06-02] MEDS: predniSONE 20 MG TAB PO SCH (09:07)
[2021-06-02 09:12] LABS: BASO % 0.2 % (0.0-1.0); EOS % 0.2 % (0.0-3.0); HEMOGLOBIN 14.3 g/dl (13.5-17.5); LYMPH # 1.3 10^3/uL (1.5-5.0); LYMPH % 13.8 % (24.0-44.0); MEAN CORPUSCULAR HEMOGLOBIN 30.8 pg (27.0-33.0); MEAN CORPUSCULAR VOLUME 90.5 fl (80.0-96.0); MONO # 0.5 10^3/uL (0.0-0.8); MONO % 5.2 % (2.0-8.0); NEUTROPHILS # 7.5 10^3/uL (1.5-8.5); NEUTROPHILS % 79.5 % (36.0-66.0); PLATELET COUNT, AUTOMATED 183 10^3/uL (150-450); RED BLOOD COUNT 4.64 10^6/uL (4.30-6.10); WHITE BLOOD COUNT 9.4 10^3/uL (4.0-10.0)
[2021-06-02 09:25] LABS: D-DIMER QUANT 3139.68 ng/ml (<500)
[2021-06-02 09:46] LABS: BLOOD UREA NITROGEN 14 MG/DL (7-18); CALCIUM LEVEL 8.9 MG/DL (8.5-10.1); CARBON DIOXIDE LEVEL 31 MEQ/L (21-32); CHLORIDE LEVEL 105 MEQ/L (98-107); CREATININE FOR GFR 0.84 MG/DL (0.70-1.30); FERRITIN 1002 NG/ML (26-388); GLOMERULAR FILTRATION RATE > 60.0 (>56); GLUCOSE, FASTING 156 MG/DL (70-100); POTASSIUM SERUM 4.1 MEQ/L (3.5-5.1); SODIUM LEVEL 143 MEQ/L (136-145)
--- NOTE | 2021-06-02 13:16 | IPNPDOC ---
Subjective Date Seen The patient was seen on 06/02/21. Subjective Chief Complaint/HPI Patient reports that he feels better, denies any shortness of breath. No fever in the past 24 hours, patient is requiring oxygen 24 x 7. Will get PT evaluation Objective Physical Examination General Exam: Positive: Alert, Cooperative, No Acute Distress Eye Exam: Positive: PERRLA, Conjunctiva & lids normal, EOMI ENT Exam: Positive: Atraumatic, Mucous membr. moist/pink, Pharynx Normal Neck Exam: Positive: Supple Chest Exam: Positive: Other Heart Exam: Positive: Rate Normal, Regular Rhythm, Normal S1, Normal S2 Abdomen Exam: Positive: Normal bowel sounds, Soft Extremity Exam: Negative: Clubbing, Cyanosis, Edema Psych Exam: Positive: Memory Intact, Oriented x 3 Assessment /Plan Assessment 56 yr old male moved from [place] on May 03, the same day he begun to feel unwell. Shortly there-after was diagnosed with COVID 19 and admitted to our facility from May 10 to May 22 for acute hypoxemic respiratory failure/ARDS & COVID-19 pneumonia. He was sent home with nocturnal O2 and albuterol. Also has PMH of AFSANEH. Presented to the ED on 05/30/21 for Fever and cough and SOB was a dmitted for suspected sepsis possibly due to post viral bacterial pneumonia but behaving more like inflammatory post viral pneumonitis vs. less likely bacterial PNA. Post viral pneumonitis Vs Post viral bacterial pneumonia with SIRs/Sepsis continue Levaquin, prednisone f/u procalcitonin, if it is negative,will stop abx f/u urine legionella and strep antigens Sputum ws contaminated by oropharyngeal amor , was of poor quality so culture not performed. Continue supplemental O2, albuterol PT Chronic hypoxic respiratory failure s/p COVID pneumonia Now oxygen requirement is a little higher. Constipation miralax BID AFSANEH needs PCP referral for formal sleep study, for now on O2 Plan/VTE VTE Prophylaxis Ordered?: Yes VS, I&O, 24H, Fishbone Vital Signs/I&O Vital Signs Date Time Temp Pulse Resp B/P (MAP) Pulse Ox O2 Delivery O2 Flow Rate FiO2 06/02/21 08:00 97.3 91 20 106/64 (78) 93 Nasal Cannula 2.0 I&O- Last 24 Hours up to 6 AM 06/02/21 06:00 Intake Total 780 ml Output Total 250 ml Balance 530 ml Laboratory Data 24H LABS Laboratory Tests 2 06/02/21 08:39: Immature Granulocyte % (Auto) 1.1, Neutrophils (%) (Auto) 79.5H, Lymphocytes (%) (Auto) 13.8L, Monocytes (%) (Auto) 5.2, Eosinophils (%) (Auto) 0.2, Basophils (%) (Auto) 0.2, Neutrophils # (Auto) 7.5, Lymphocytes # (Auto) 1.3L, Monocytes # (Auto) 0.5, Eosinophils # (Auto) 0.0, Basophils # (Auto) 0.0, Nucleated Red Blood Cells % (auto) 0.0, Fibrinogen 691H, D-Dimer, Quantitative 3139.68H, Anion Gap 7L, Glomerular Filtration Rate > 60.0, Calcium Level 8.9#, Ferritin 1002H CBC/BMP Laboratory Tests 06/02/21 08:39 Microbiology Microbiology 05/30/21 Gram Stain - Final, Complete 05/30/21 Sputum Culture - Final, Complete 05/30/21 Blood Culture - Preliminary, Resulted No Growth after 48 hours. All Specime... 05/30/21 Blood Culture - Preliminary, Resulted No Growth after 48 hours. All Specime... Daphney Dunlap MD Jun 02, 2021 13:16
[2021-06-02 16:00] VITALS: BP 123/67
[2021-06-02 20:00] VITALS: BP 104/52
[2021-06-03 05:18] LABS: BASO % 0.4 % (0.0-1.0); EOS # 0.1 10^3/uL (0.0-0.5); EOS % 0.7 % (0.0-3.0); HEMATOCRIT 41.3 % (42.0-52.0); LYMPH # 1.4 10^3/uL (1.5-5.0); LYMPH % 18.5 % (24.0-44.0); MEAN CORPUSCULAR HEMOGLOBIN 30.8 pg (27.0-33.0); MEAN CORPUSCULAR HGB CONC 33.9 g/dl (32.0-36.5); MONO # 0.5 10^3/uL (0.0-0.8); NEUTROPHILS # 5.4 10^3/uL (1.5-8.5); NEUTROPHILS % 71.7 % (36.0-66.0); PLATELET COUNT, AUTOMATED 205 10^3/uL (150-450); RED BLOOD COUNT 4.54 10^6/uL (4.30-6.10); WHITE BLOOD COUNT 7.6 10^3/uL (4.0-10.0)
[2021-06-03] MEDS: LevoFLOXacin IV 750 MG in IV 1 EA IV SCH (05:25)
[2021-06-03 05:38] LABS: BLOOD UREA NITROGEN 15 MG/DL (7-18); CARBON DIOXIDE LEVEL 32 MEQ/L (21-32); CHLORIDE LEVEL 108 MEQ/L (98-107); CREATININE FOR GFR 0.75 MG/DL (0.70-1.30); GLOMERULAR FILTRATION RATE > 60.0 (>56); GLUCOSE, FASTING 86 MG/DL (70-100); POTASSIUM SERUM 4.2 MEQ/L (3.5-5.1); SODIUM LEVEL 143 MEQ/L (136-145)
[2021-06-03] MEDS ORDERED: PRED10TA2 PO (07:34)
[2021-06-03] MEDS ORDERED: OMEP40CA4 PO (07:34)
[2021-06-03] MEDS ORDERED: LEVO750T13 PO (07:34)
[2021-06-03] MEDS ORDERED: MIRA1POW3 PO (07:34)
[2021-06-03] MEDS: ALBUTEROL 90 MCG/ACT 8GM HFA INHALER INH SCH (07:48)
[2021-06-03 08:00] VITALS: BP 116/63
[2021-06-03] MEDS: MIRALAX *UNIT DOSE* 17GM PACKET PO SCH (08:35)
[2021-06-03] MEDS: predniSONE 20 MG TAB PO SCH (08:35)
[2021-06-03] MEDS: ENOXAPARIN 40MG/0.4ML SYRINGE (J1650 PER 10MG) SC SCH (08:35)
--- NOTE | 2021-06-03 13:41 | DS.PDOC ---
Discharge Summary General Date of Admission May 30, 2021 at 21:04 Date of Discharge 06/03/21 Discharge Summary PROCEDURES PERFORMED DURING STAY: [None]. DISCHARGE DIAGNOSES: Persistent hypoxic respiratory failure post COVID Pneumonia Persistent Pneumonitis post COVID infection. Post viral bacterial pneumonia Possible AFSANEH COMPLICATIONS/CHIEF COMPLAINT: Dyspnea,Hypoxia,Post-Covid Syndrome,Sirs. HOSPITAL COURSE: 56 yr old male moved from [place] on May 03, the same day he begun to feel unwell. Shortly there-after was diagnosed with COVID 19 and admitted to our facility from May 10 to May 22 for acute hypoxemic respiratory failure/ARDS & COVID-19 pneumonia. He was sent home with nocturnal O2 and albuterol. Also has PMH of AFSANEH. Presented to the ED on 05/30/21 for Fever and cough and SOB was admitted for suspected sepsis possibly due to post viral bacterial pneumonia but behaving more like inflammatory post viral pneumonitis vs. less likely bacterial PNA. Post viral pneumonitis Vs Post viral bacterial pneumonia with SIRs/Sepsis continue Levaquin, prednisone Pro nick 0.11 Sputum was contaminated by oropharyngeal amor , was of poor quality so culture not performed. Continue supplemental O2, albuterol Chronic hypoxic respiratory failure s/p COVID pneumonia Now oxygen requirement is a little higher. Constipation miralax BID AFSANEH needs PCP referral for formal sleep study, for now on O2 DISCHARGE MEDICATIONS: Please see below. ALLERGIES: Please see below. PHYSICAL EXAMINATION ON DISCHARGE: VITAL SIGNS: Please see below. General Exam: Positive: Alert, Cooperative, No Acute Distress Eye Exam: Positive: PERRLA, Conjunctiva & lids normal, EOMI ENT Exam: Positive: Atraumatic, Mucous membr. moist/pink, Pharynx Normal Neck Exam: Positive: Supple Chest Exam: Positive: Other Heart Exam: Positive: Rate Normal, Regular Rhythm, Normal S1, Normal S2 Abdomen Exam: Positive: Normal bowel sounds, Soft Extremity Exam: Negative: Clubbing, Cyanosis, Edema Psych Exam: Positive: Memory Intact, Oriented x 3 LABORATORY DATA: Please see below. IMAGING: CTA of chest: 1. Bilateral semi-solid and solid pulmonary parenchymal infiltrates consistent with multifocal pneumonitis. 2. There is no aortic dissection or aneurysm. 3. There are no pulmonary emboli. ACTIVITY: [As tolerated]. DIET: As tolerated DISPOSITION: 01 Home, Self-Care. DISCHARGE INSTRUCTIONS: PMD in 1 week ITEMS TO FOLLOWUP ON ON OUTPATIENT: f/u urine legionella and strep antigens DISCHARGE CONDITION: [Stable]. TIME SPENT ON DISCHARGE: 35 minutes. Vital Signs/I&Os Vital Signs Date Time Temp Pulse Resp B/P (MAP) Pulse Ox O2 Delivery O2 Flow Rate FiO2 06/03/21 09:05 91 Nasal Cannula 3.0 06/03/21 08:00 97.3 97 30 116/63 (80) I&O- Last 24 Hours up to 6 AM 06/03/21 06:00 Intake Total 930 ml Output Total 0 ml Balance 930 ml Laboratory Data Labs 24H Laboratory Tests 2 06/03/21 05:00: Immature Granulocyte % (Auto) 1.7, Neutrophils (%) (Auto) 71.7H, Lymphocytes (%) (Auto) 18.5L, Monocytes (%) (Auto) 7.0, Eosinophils (%) (Auto) 0.7, Basophils (%) (Auto) 0.4, Neutrophils # (Auto) 5.4, Lymphocytes # (Auto) 1.4L, Monocytes # (Auto) 0.5, Eosinophils # (Auto) 0.1, Basophils # (Auto) 0.0, Nucleated Red Blood Cells % (auto) 0.0, Anion Gap 3L, Glomerular Filtration Rate > 60.0, Calcium Level 8.0L CBC/BMP Laboratory Tests 06/03/21 05:00 Microbiology Microbiology 05/30/21 Gram Stain - Final, Complete 05/30/21 Sputum Culture - Final, Complete 05/30/21 Blood Culture - Preliminary, Resulted No Growth after 72 hours. All specime... 05/30/21 Blood Culture - Preliminary, Resulted No Growth after 72 hours. All specime... Discharge Medications Scheduled Levofloxacin (Levofloxacin) 750 Mg Tablet, 1 TAB PO DAILY Omeprazole (Omeprazole) 40 Mg Capsule.dr, 1 CAP PO DAILY Prednisone (Prednisone) 10 Mg Tablet, 10 MG PO TAPER Take 4 tabs daily x 3 days, then 3 tabs daily x 3 days, then 2 tabs daily x 3 days, then 1 tab daily x 3 days and stop Sennosides (Ex-Lax) 15 Mg Tablet, 15 MG PO DAILY, (Reported) Scheduled PRN Albuterol Sulfate (Albuterol Sulfate Hfa) 8.5 Gm Hfa.aer.ad, 2 PUFFS INH Q6H PRN for SHORTNESS OF BREATH, (Reported) Polyethylene Glycol 3350 (Miralax) 17 Gm Powd.pack, 1 PKT PO BIDP PRN for CONSTIPATION Allergies Coded Allergies: Penicillins (Unverified Allergy, Intermediate, SWOLLEN AND RED, 05/10/21) Daphney Dunlap MD Jun 03, 2021 13:40
[2021-06-03 14:14] LABS: CHLAMYDIA PNEUMONIAE IgM <1:10 (Neg:<1:10); MYCOPLASMA PNEUMONIAE IgG 308 U/mL (0-99); MYCOPLASMA PNEUMONIAE IgM <770 U/mL (0-769)
== END 2021-06-03 11:46 | disposition home or self-care (01) | DRG 720 ==
LOC: M ED 17:16 → M ED INP 21:04 → M 4MAIN 22:03 → M PCU 05-31 02:18
PROVIDERS: ADMIT Internal Medicine; ATTEND Internal Medicine Nephrology
DX: A41.9 Sepsis, unspecified organism (principal); J96.11 Chronic respiratory failure with hypoxia; Z99.81 Dependence on supplemental oxygen; J12.9 Viral pneumonia, unspecified; Z86.16 Personal history of COVID-19; K59.00 Constipation, unspecified; G47.33 Obstructive sleep apnea (adult) (pediatric); E66.9 Obesity, unspecified; B94.8 Sequelae of other specified infectious and parasitic diseases; Z88.0 Allergy status to penicillin; Z79.899 Other long term (current) drug therapy; Z68.36 Body mass index [BMI] 36.0-36.9, adult